=== PATIENT | male | born 1955 | race Caucasian/White ===

== ENCOUNTER 2016-09-11 12:53 | Emergency (ER) | payer MEDICAID ==
[2016-09-11] MEDS ORDERED: INSULIN REGULAR HUMAN 100 UNIT/1 ML 10 ML MDV IVP STA ×2 (14:11→20:20)
[2016-09-11] MEDS ORDERED: metFORMIN 500 MG TABLET PO STA (14:12)
[2016-09-11] MEDS ORDERED: INSULIN REGULAR HUMAN 100 UNIT/1 ML 10 ML MDV ONE ×3 (14:16→20:26)
[2016-09-11] MEDS ORDERED: metFORMIN 500 MG TABLET ONE (14:16)
[2016-09-11] MEDS ORDERED: HALOPERIDOL 5 MG/ML VIAL IVP ONE (19:12)
[2016-09-11] MEDS ORDERED: HALOPERIDOL 5 MG/ML VIAL ONE (19:18)
[2016-09-11] MEDS ORDERED: NICOTINE 21 MG PATCH TOP STA (19:20)
[2016-09-11] MEDS ORDERED: NICOTINE 21 MG PATCH TOP ONE (19:29)
[2016-09-11] MEDS ORDERED: DEXTROSE 50% ABBOJECT 25 GM/50 ML SYRINGE ONE (20:37)
[2016-09-11] MEDS ORDERED: DEXTROSE 50% ABBOJECT 25 GM/50 ML SYRINGE IVP STA (21:27)
[2016-09-12] MEDS ORDERED: metFORMIN 500 MG TABLET PO STA (01:47)
[2016-09-12] MEDS ORDERED: QUEtiapine 25 MG TABLET PO STA (01:50)
[2016-09-12] MEDS ORDERED: metFORMIN 500 MG TABLET ONE (01:57)
== END 2016-09-12 09:35 ==
DX: F29 Unspecified psychosis not due to a substance or known physiological condition (principal); F31.9 Bipolar disorder, unspecified; E11.9 Type 2 diabetes mellitus without complications; Z79.84 Long term (current) use of oral hypoglycemic drugs; Z91.14 Patient's other noncompliance with medication regimen
CPT/HCPCS: 36415; 80053; 80178; 80306; 80307; 80320; 80329; 83690; 85025; 96374; 96375; 99285; A9270; J1815

== ENCOUNTER 2017-01-08 12:44 | Emergency (ER) | payer MEDICAID ==
--- NOTE | 2017-01-08 13:33 | ED Physician Documentation ---
PD HPI MHE - Stated complaint Stated Complaint: MHE - Chief complaint Chief Complaint: MHE - History obtained from History obtained from: Patient - History of Present Illness Primary symptom: Manic, Anxiety, Off meds (his daughter says the patient told her he was not taking his meds, he is more scattered thinking and seems somewhat manic. Sugars are elevated to 300-400s, so apparently not taking his insulin. Went to next day appt at [facility] today and brought over to ED for evaluation and medical clearance for revoking his LRO and transfer to psych facility.). No: Suicidal ideation, Suicide attempt Timing - onset: How many days ago (days to a week of worsening symptoms.) Contributing factors: Off meds. No: Substance abuse - ETOH, Substance abuse - drugs Similar symptoms before: Diagnosis (bipolar/schizoaffective disorder.) Recently seen: Admitted (few weeks ago to psych facility.) Review of Systems Constitutional: denies: Fever Nose: reports: Rhinorrhea / runny nose. denies: Congestion Throat: denies: Sore throat Respiratory: denies: Cough GI: denies: Abdominal Pain, Nausea, Vomiting, Diarrhea : denies: Dysuria, Frequency Skin: denies: Rash, Lesions Neurologic: reports: Generalized weakness. denies: Focal weakness, Numbness, Near syncope Psychiatric: denies: Delusions Endocrine: denies: Weight loss Immunocompromised: denies: Immunocompromised PD PAST MEDICAL HISTORY - Past Medical History Endocrine/Autoimmune: Type 2 diabetes Psych: Bipolar disorder - Present Medications Home Medications: Ambulatory Orders Medication Instructions Recorded Confirmed [place] Carbonate 60 mg PO BID 05/10/16 09/11/16 Metformin HCl 10 mg PO BID 05/10/16 09/11/16 Quetiapine Fumarate [Seroquel] 200 mg PO DAILY 05/10/16 09/11/16 Ziprasidone HCl [Geodon] 80 mg PO DAILY 05/10/16 09/11/16 Benztropine [Cogentin] 1 mg PO DAILY 09/11/16 09/11/16 glipiZIDE [Glucotrol] 5 mg PO DAILY 09/11/16 09/11/16 - Allergies Allergies/Adverse Reactions: Allergies Allergy/AdvReac Type Severity Reaction Status Date / Time aspirin Allergy Unknown Verified 01/08/17 12:58 - Social History Does the pt smoke?: Yes Smoking Status: Current every day smoker Does the pt drink ETOH?: No Does the pt have substance abuse?: No PD ED PE NORMAL - Vitals Vital signs reviewed: Yes - General General: Alert and oriented X 3, No acute distress, Well developed/nourished - HEENT HEENT: Ears normal, Moist mucous membranes, Pharynx benign - Neck Neck: Supple, no meningeal sign, No adenopathy - Cardiac Cardiac: RRR, No murmur - Respiratory Respiratory: Clear bilaterally - Abdomen Abdomen: Soft, Non tender - Male Male : Deferred - Rectal Rectal: Deferred - Back Back: No CVA TTP - Derm Derm: Normal color, Warm and dry - Neuro Neuro: Alert and oriented X 3, No motor deficit. No: Normal speech (somewhat pressured, but still coherent. He is cooperative/pleasant, but says he wants to just go home. ) Results - Vitals Vitals: Vital Signs - 24 hr 01/08/17 01/08/17 12:55 21:45 Temperature 36.1 C L Heart Rate 70 62 Respiratory 19 15 Rate Blood Pressure 121/71 96/43 L O2 Saturation 98 95 Oxygen O2 Source Room air - Labs Labs: Laboratory Tests 01/08/17 01/08/17 01/08/17 13:01 13:48 13:48 WBC 9.6 RBC 4.72 Hgb 14.9 Hct 43.0 MCV 91.1 MCH 31.6 H MCHC 34.7 RDW 13.2 Plt Count 301 MPV 7.7 Neut # 6.0 Lymph # 2.3 [place] # 1.0 Eos # 0.3 Baso # 0.1 Absolute Nucleated RBC 0.01 Nucleated RBCs 0.1 Sodium 131 L Potassium 4.2 Chloride 99 L Carbon Dioxide 25 Anion Gap 7.0 BUN 15 Creatinine 0.8 Estimated GFR (MDRD) 99 Glucose 344 H POC Whole Bld Glucose 343 H Glycated Hemoglobin Estim Average Glucose Calcium 9.4 Magnesium 2.0 Total Bilirubin 0.8 AST 24 ALT 29 Alkaline Phosphatase 58 Total Protein 6.7 Albumin 3.8 Globulin 2.9 Albumin/Globulin Ratio 1.3 Lipase 43 TSH Urine Color Urine Clarity Urine pH Ur Specific [place] Urine Protein Urine Glucose (UA) Urine Ketones Urine Occult Blood Urine Nitrite Urine Bilirubin Urine Urobilinogen Ur Leukocyte Esterase Ur Microscopic Review Urine Culture Comments Last Dose Date Last Dose Time Salicylates < 6.0 Urine Opiates Screen Ur Oxycodone Screen Urine Methadone Screen Ur Propoxyphene Screen Acetaminophen < 10 L Ur Barbiturates Screen Ur Tricyclics Screen Ur Phencyclidine Scrn Ur Amphetamine Screen U Methamphetamines Scrn U Benzodiazepines Scrn [place] Urine Cocaine Screen U Cannabinoids Screen Ethyl Alcohol < 5.0 01/08/17 01/08/17 01/08/17 13:48 13:48 13:48 WBC RBC Hgb Hct MCV MCH MCHC RDW Plt Count MPV Neut # Lymph # [place] # Eos # Baso # Absolute Nucleated RBC Nucleated RBCs Sodium Potassium Chloride Carbon Dioxide Anion Gap BUN Creatinine Estimated GFR (MDRD) Glucose POC Whole Bld Glucose Glycated Hemoglobin 14.4 H Estim Average Glucose 367 H Calcium Magnesium Total Bilirubin AST ALT Alkaline Phosphatase Total Protein Albumin Globulin Albumin/Globulin Ratio Lipase TSH 2.40 Urine Color Urine Clarity Urine pH Ur Specific [place] Urine Protein Urine Glucose (UA) Urine Ketones Urine Occult Blood Urine Nitrite Urine Bilirubin Urine Urobilinogen Ur Leukocyte Esterase Ur Microscopic Review Urine Culture Comments Last Dose Date UNK Last Dose Time UNK Salicylates Urine Opiates Screen Ur Oxycodone Screen Urine Methadone Screen Ur Propoxyphene Screen Acetaminophen Ur Barbiturates Screen Ur Tricyclics Screen Ur Phencyclidine Scrn Ur Amphetamine Screen U Methamphetamines Scrn U Benzodiazepines Scrn [place] 1.18 Urine Cocaine Screen U Cannabinoids Screen Ethyl Alcohol 01/08/17 01/08/17 01/08/17 14:30 15:46 16:56 WBC RBC Hgb Hct MCV MCH MCHC RDW Plt Count MPV Neut # Lymph # [place] # Eos # Baso # Absolute Nucleated RBC Nucleated RBCs Sodium Potassium Chloride Carbon Dioxide Anion Gap BUN Creatinine Estimated GFR (MDRD) Glucose POC Whole Bld Glucose 414 H 394 H Glycated Hemoglobin Estim Average Glucose Calcium Magnesium Total Bilirubin AST ALT Alkaline Phosphatase Total Protein Albumin Globulin Albumin/Globulin Ratio Lipase TSH Urine Color YELLOW Urine Clarity CLEAR Urine pH 7.5 Ur Specific [place] 1.010 Urine Protein NEGATIVE Urine Glucose (UA) >=1000 H Urine Ketones NEGATIVE Urine Occult Blood NEGATIVE Urine Nitrite NEGATIVE Urine Bilirubin NEGATIVE Urine Urobilinogen 0.2 (NORMAL) Ur Leukocyte Esterase NEGATIVE Ur Microscopic Review NOT INDICATED Urine Culture Comments NOT INDICATED Last Dose Date Last Dose Time Salicylates Urine Opiates Screen NEGATIVE Ur Oxycodone Screen NEGATIVE Urine Methadone Screen NEGATIVE Ur Propoxyphene Screen NEGATIVE Acetaminophen Ur Barbiturates Screen NEGATIVE Ur Tricyclics Screen POSITIVE H Ur Phencyclidine Scrn NEGATIVE Ur Amphetamine Screen NEGATIVE U Methamphetamines Scrn NEGATIVE U Benzodiazepines Scrn NEGATIVE [place] Urine Cocaine Screen NEGATIVE U Cannabinoids Screen NEGATIVE Ethyl Alcohol 01/08/17 01/08/17 01/08/17 18:18 19:40 23:24 WBC RBC Hgb Hct MCV MCH MCHC RDW Plt Count MPV Neut # Lymph # [place] # Eos # Baso # Absolute Nucleated RBC Nucleated RBCs Sodium Potassium Chloride Carbon Dioxide Anion Gap BUN Creatinine Estimated GFR (MDRD) Glucose POC Whole Bld Glucose 304 H 244 H 78 Glycated Hemoglobin Estim Average Glucose Calcium Magnesium Total Bilirubin AST ALT Alkaline Phosphatase Total Protein Albumin Globulin Albumin/Globulin Ratio Lipase TSH Urine Color Urine Clarity Urine pH Ur Specific [place] Urine Protein Urine Glucose (UA) Urine Ketones Urine Occult Blood Urine Nitrite Urine Bilirubin Urine Urobilinogen Ur Leukocyte Esterase Ur Microscopic Review Urine Culture Comments Last Dose Date Last Dose Time Salicylates Urine Opiates Screen Ur Oxycodone Screen Urine Methadone Screen Ur Propoxyphene Screen Acetaminophen Ur Barbiturates Screen Ur Tricyclics Screen Ur Phencyclidine Scrn Ur Amphetamine Screen U Methamphetamines Scrn U Benzodiazepines Scrn [place] Urine Cocaine Screen U Cannabinoids Screen Ethyl Alcohol PD MEDICAL DECISION MAKING - ED course Complexity details: reviewed results (blood sugar is elevated and sounds like patient has not been taking meds/insulin. However his lithium level is good. He is having some tangential and scattered thought process. So would be deemed better in psych facility. He has LRO which depends on him taking meds. So this will be revoked. [facility] came to see patient after labs and time for his sugar to lower with meds. SHYAM says psych facility criteria is for sugar to be below 200. Will give meds to lower his sugar gently. Zeinab from [facility] came to see patient and felt he would be detainable by revoking his LRO but no beds available at any facility. So he will be boarding here overnight. He did get his usually Rx meds here in ED. Did not require additional meds. ), considered differential, d/w patient
[2017-01-08 13:59] LABS: BASOPHILS # (AUTO) 0.1 10^3/uL (0.0-0.1); EOSINOPHILS # (AUTO) 0.3 10^3/uL (0.0-0.7); EOSINOPHILS % (AUTO) 2.8 %; HGB - HEMOGLOBIN 14.9 g/dL (14.0-18.0); LYMPHOCYTES # (AUTO) 2.3 10^3/uL (1.5-3.5); LYMPHOCYTES % (AUTO) 23.9 %; MEAN CORPUSCULAR HEMOGLOBIN 31.6 pg (27.0-31.0); MEAN CORPUSCULAR HGB CONC 34.7 g/dL (32.0-36.0); MEAN CORPUSCULAR VOLUME 91.1 fL (80.0-94.0); MEAN PLATELET VOLUME 7.7 fL (7.4-11.4); MONOCYTES % (AUTO) 10.4 %; NEUTROPHILS % (AUTO) 61.9 %; NUCLEATED RED BLOOD CELLS AUTO 0.1 /100WBC; RED BLOOD COUNT 4.72 10^6/uL (4.70-6.10); RED CELL DISTRIBUTION WIDTH 13.2 % (12.0-15.0); UNCORRECTED WHITE BLOOD COUNT 9.6 x10^3/uL; WHITE BLOOD COUNT 9.6 x10^3/uL (4.8-10.8)
[2017-01-08 14:15] LABS: ACETAMINOPHEN < 10 ug/mL (10-30); ALBUMIN/GLOBULIN RATIO 1.3 (1.0-2.2); BILIRUBIN,TOTAL 0.8 mg/dL (0.2-1.0); BUN - BLOOD UREA NITROGEN 15 mg/dL (6-20); CALCIUM 9.4 mg/dL (8.5-10.3); CARBON DIOXIDE - CO2 25 mmol/L (21-32); CHLORIDE 99 mmol/L (101-111); CREATININE 0.8 mg/dL (0.6-1.2); GFR - MDRD 99 (>89); GLUCOSE 344 mg/dL (70-100); LIPASE 43 U/L (22-51); POTASSIUM 4.2 mmol/L (3.5-5.0); SALICYLATE < 6.0 mg/dL; SODIUM 131 mmol/L (135-145); TOTAL PROTEIN 6.7 g/dL (6.7-8.2)
[2017-01-08 14:41] LABS: BILIRUBIN,URINE NEGATIVE (NEGATIVE); PH,URINE 7.5 PH (5.0-7.5)
[2017-01-08 14:43] LABS: UA CHARGE (STRIP ONLY) YES; UR CULTURE IF IND NOT INDICATED
[2017-01-08 15:11] LABS: HEMOGLOBIN A1C 2.13 g/dL
[2017-01-08] MEDS ORDERED: INSULIN REGULAR HUMAN 100 UNIT/1 ML 10 ML MDV SUBQ STA ×2 (15:54→17:05)
[2017-01-08] MEDS ORDERED: INSULIN REGULAR HUMAN 100 UNIT/1 ML 10 ML MDV ONE ×2 (15:59→17:26)
[2017-01-08] MEDS ORDERED: INSULIN GLARGINE 300 UNIT/3 ML PEN SUBQ STA (17:22)
[2017-01-08] MEDS ORDERED: QUEtiapine 25 MG TABLET PO STA (17:37)
[2017-01-08] MEDS ORDERED: ZIPRASIDONE 20 MG CAPSULE PO STA (17:37)
[2017-01-08] MEDS ORDERED: INSULIN GLARGINE 300 UNIT/3 ML PEN SUBQ SCH (21:00)
--- NOTE | 2017-01-09 07:49 | ED Physician Documentation ---
History of Present Illness - Stated complaint Stated Complaint: MHE - Chief complaint Chief Complaint: MHE PD PAST MEDICAL HISTORY - Past Medical History Endocrine/Autoimmune: Type 2 diabetes Psych: Bipolar disorder - Present Medications Home Medications: Ambulatory Orders Medication Instructions Recorded Confirmed [place] Carbonate 300 mg PO QID 05/10/16 01/09/17 Metformin HCl 1,000 mg PO BID 05/10/16 01/09/17 glipiZIDE [Glucotrol] 5 mg PO DAILY 09/11/16 01/09/17 Benztropine [Cogentin] 1 mg PO BID 01/09/17 01/09/17 Insulin Aspart [Novolog Flexpen] 5 units SQ TID 01/09/17 01/09/17 Quetiapine Fumarate [Seroquel] 300 mg PO DAILY 01/09/17 01/09/17 - Allergies Allergies/Adverse Reactions: Allergies Allergy/AdvReac Type Severity Reaction Status Date / Time aspirin Allergy Unknown Verified 01/08/17 12:58 - Social History Does the pt smoke?: Yes Smoking Status: Current every day smoker Does the pt drink ETOH?: No Does the pt have substance abuse?: No Results - Vitals Vitals: Vital Signs - 24 hr 01/08/17 01/09/17 21:45 08:00 Heart Rate 62 58 L Respiratory 15 12 Rate Blood Pressure 96/43 L 122/66 O2 Saturation 95 96 Oxygen O2 Source Room air - Labs Labs: Laboratory Tests 01/08/17 01/08/17 01/08/17 13:01 13:48 13:48 WBC 9.6 RBC 4.72 Hgb 14.9 Hct 43.0 MCV 91.1 MCH 31.6 H MCHC 34.7 RDW 13.2 Plt Count 301 MPV 7.7 Neut # 6.0 Lymph # 2.3 [place] # 1.0 Eos # 0.3 Baso # 0.1 Absolute Nucleated RBC 0.01 Nucleated RBCs 0.1 Sodium 131 L Potassium 4.2 Chloride 99 L Carbon Dioxide 25 Anion Gap 7.0 BUN 15 Creatinine 0.8 Estimated GFR (MDRD) 99 Glucose 344 H POC Whole Bld Glucose 343 H Glycated Hemoglobin Estim Average Glucose Calcium 9.4 Magnesium 2.0 Total Bilirubin 0.8 AST 24 ALT 29 Alkaline Phosphatase 58 Total Protein 6.7 Albumin 3.8 Globulin 2.9 Albumin/Globulin Ratio 1.3 Lipase 43 TSH Urine Color Urine Clarity Urine pH Ur Specific [place] Urine Protein Urine Glucose (UA) Urine Ketones Urine Occult Blood Urine Nitrite Urine Bilirubin Urine Urobilinogen Ur Leukocyte Esterase Ur Microscopic Review Urine Culture Comments Last Dose Date Last Dose Time Salicylates < 6.0 Urine Opiates Screen Ur Oxycodone Screen Urine Methadone Screen Ur Propoxyphene Screen Acetaminophen < 10 L Ur Barbiturates Screen Ur Tricyclics Screen Ur Phencyclidine Scrn Ur Amphetamine Screen U Methamphetamines Scrn U Benzodiazepines Scrn [place] Urine Cocaine Screen U Cannabinoids Screen Ethyl Alcohol < 5.0 01/08/17 01/08/17 01/08/17 13:48 13:48 13:48 WBC RBC Hgb Hct MCV MCH MCHC RDW Plt Count MPV Neut # Lymph # [place] # Eos # Baso # Absolute Nucleated RBC Nucleated RBCs Sodium Potassium Chloride Carbon Dioxide Anion Gap BUN Creatinine Estimated GFR (MDRD) Glucose POC Whole Bld Glucose Glycated Hemoglobin 14.4 H Estim Average Glucose 367 H Calcium Magnesium Total Bilirubin AST ALT Alkaline Phosphatase Total Protein Albumin Globulin Albumin/Globulin Ratio Lipase TSH 2.40 Urine Color Urine Clarity Urine pH Ur Specific [place] Urine Protein Urine Glucose (UA) Urine Ketones Urine Occult Blood Urine Nitrite Urine Bilirubin Urine Urobilinogen Ur Leukocyte Esterase Ur Microscopic Review Urine Culture Comments Last Dose Date UNK Last Dose Time UNK Salicylates Urine Opiates Screen Ur Oxycodone Screen Urine Methadone Screen Ur Propoxyphene Screen Acetaminophen Ur Barbiturates Screen Ur Tricyclics Screen Ur Phencyclidine Scrn Ur Amphetamine Screen U Methamphetamines Scrn U Benzodiazepines Scrn [place] 1.18 Urine Cocaine Screen U Cannabinoids Screen Ethyl Alcohol 01/08/17 01/08/17 01/08/17 14:30 15:46 16:56 WBC RBC Hgb Hct MCV MCH MCHC RDW Plt Count MPV Neut # Lymph # [place] # Eos # Baso # Absolute Nucleated RBC Nucleated RBCs Sodium Potassium Chloride Carbon Dioxide Anion Gap BUN Creatinine Estimated GFR (MDRD) Glucose POC Whole Bld Glucose 414 H 394 H Glycated Hemoglobin Estim Average Glucose Calcium Magnesium Total Bilirubin AST ALT Alkaline Phosphatase Total Protein Albumin Globulin Albumin/Globulin Ratio Lipase TSH Urine Color YELLOW Urine Clarity CLEAR Urine pH 7.5 Ur Specific [place] 1.010 Urine Protein NEGATIVE Urine Glucose (UA) >=1000 H Urine Ketones NEGATIVE Urine Occult Blood NEGATIVE Urine Nitrite NEGATIVE Urine Bilirubin NEGATIVE Urine Urobilinogen 0.2 (NORMAL) Ur Leukocyte Esterase NEGATIVE Ur Microscopic Review NOT INDICATED Urine Culture Comments NOT INDICATED Last Dose Date Last Dose Time Salicylates Urine Opiates Screen NEGATIVE Ur Oxycodone Screen NEGATIVE Urine Methadone Screen NEGATIVE Ur Propoxyphene Screen NEGATIVE Acetaminophen Ur Barbiturates Screen NEGATIVE Ur Tricyclics Screen POSITIVE H Ur Phencyclidine Scrn NEGATIVE Ur Amphetamine Screen NEGATIVE U Methamphetamines Scrn NEGATIVE U Benzodiazepines Scrn NEGATIVE [place] Urine Cocaine Screen NEGATIVE U Cannabinoids Screen NEGATIVE Ethyl Alcohol 01/08/17 01/08/17 01/08/17 18:18 19:40 23:24 WBC RBC Hgb Hct MCV MCH MCHC RDW Plt Count MPV Neut # Lymph # [place] # Eos # Baso # Absolute Nucleated RBC Nucleated RBCs Sodium Potassium Chloride Carbon Dioxide Anion Gap BUN Creatinine Estimated GFR (MDRD) Glucose POC Whole Bld Glucose 304 H 244 H 78 Glycated Hemoglobin Estim Average Glucose Calcium Magnesium Total Bilirubin AST ALT Alkaline Phosphatase Total Protein Albumin Globulin Albumin/Globulin Ratio Lipase TSH Urine Color Urine Clarity Urine pH Ur Specific [place] Urine Protein Urine Glucose (UA) Urine Ketones Urine Occult Blood Urine Nitrite Urine Bilirubin Urine Urobilinogen Ur Leukocyte Esterase Ur Microscopic Review Urine Culture Comments Last Dose Date Last Dose Time Salicylates Urine Opiates Screen Ur Oxycodone Screen Urine Methadone Screen Ur Propoxyphene Screen Acetaminophen Ur Barbiturates Screen Ur Tricyclics Screen Ur Phencyclidine Scrn Ur Amphetamine Screen U Methamphetamines Scrn U Benzodiazepines Scrn [place] Urine Cocaine Screen U Cannabinoids Screen Ethyl Alcohol 01/09/17 01/09/17 01/09/17 00:34 07:34 11:18 WBC RBC Hgb Hct MCV MCH MCHC RDW Plt Count MPV Neut # Lymph # [place] # Eos # Baso # Absolute Nucleated RBC Nucleated RBCs Sodium Potassium Chloride Carbon Dioxide Anion Gap BUN Creatinine Estimated GFR (MDRD) Glucose POC Whole Bld Glucose 118 H 272 H 359 H Glycated Hemoglobin Estim Average Glucose Calcium Magnesium Total Bilirubin AST ALT Alkaline Phosphatase Total Protein Albumin Globulin Albumin/Globulin Ratio Lipase TSH Urine Color Urine Clarity Urine pH Ur Specific [place] Urine Protein Urine Glucose (UA) Urine Ketones Urine Occult Blood Urine Nitrite Urine Bilirubin Urine Urobilinogen Ur Leukocyte Esterase Ur Microscopic Review Urine Culture Comments Last Dose Date Last Dose Time Salicylates Urine Opiates Screen Ur Oxycodone Screen Urine Methadone Screen Ur Propoxyphene Screen Acetaminophen Ur Barbiturates Screen Ur Tricyclics Screen Ur Phencyclidine Scrn Ur Amphetamine Screen U Methamphetamines Scrn U Benzodiazepines Scrn [place] Urine Cocaine Screen U Cannabinoids Screen Ethyl Alcohol PD MEDICAL DECISION MAKING - ED course ED course: assumed care at 7 AM pt with bipolar, oif his medications, not caring for himself due to non compliance blood sugar was high and that was addressed and pt was medically cleared by Dr King pt was seen by DCR, he has failed his least restrictive option and now needs to be revoked and admitted to inpt psych however DCR was not able to find a mental health bed for this pt so DCR did a "walk away" leaving the pt to be dispositioned by ER staff pt remains in the ER pending SW attempting to find placement today I went to see the pt, he was resting but awoke easily, no acute new complaints, asking when he will be "fixed" RRR CTAB reviewed VS - none done since yesterday at which tome pt was slightly hypotensive, rechecked VS and now BP is fine planned to order pts home daily meds but they have not rex reconciled and meds as entered in Sep cannot be correct because lithium does not come as 60 mg and metformin does not come as 10 mg - nursing to try and secure a correct med list incredibly tedious to get a correct med list on this pt but eventually the pharmacist was able to access the insurance company data and list was updated and believed to be accurate and pt was gievn his suual meds orall DCR did come back, Shahnaz Day, and she has worked very hard to place this pt but unfortunately his LRO was issued in [facility] which for some reason means he cannot be admitted to the facilities that do have open beds because [place] if no bed can be found, DCR and pts counselor from [facility] who came to see pt in the ER thinks he may be stabilized enough for dc with every day home visit by his mental health specialist pt was not able to receive inpt mental health - no beds available per JACQUELINE pike MH specialist from [facility] Paco came and he will take the pt home, make sure he has and takes his meds, make sure he checks his blood sugar and that pt goes to his [facility] appt, he also needs to follow up with his PMD to recheck his DM - he has been running high in the ER and diff to get back under control after not being on his meds for many days down to the 200-330 range now and has received all his daily meds so feel OK to dc with close fup Departure - Departure Disposition: 01 Home, Self Care Clinical Impression: Bipolar disorder Qualifiers: Active/Remission status: currently active Uncontrolled diabetes mellitus Qualifiers: Diabetes mellitus type: type 2 Diabetes mellitus complication status: without complication Diabetes mellitus supervisor intermediates insulin use: unspecified prison insulin use status Qualified Code(s): E11.65 - Type 2 diabetes mellitus with hyperglycemia Instructions: ED Hyperglycemia Diabetic Follow-Up: [facility] [Provider Group] [facility] [Provider Group] Comments: Please take all your medications exactly as prescribed. Measure your blood sugars and keep a log Follow up with [facility] about your mental health and with your PMD about your diabetes within a week Your blood sugar should be between 100 and 200. If your blood sugar is more than 450 call your doctor, if it is more than 500 come to the ER
[2017-01-09] MEDS ORDERED: metFORMIN 500 MG TABLET PO STA (08:17)
[2017-01-09] MEDS ORDERED: INSULIN REGULAR HUMAN 100 UNIT/1 ML 10 ML MDV SUBQ STA ×2 (08:18→11:34)
[2017-01-09] MEDS ORDERED: INSULIN REGULAR HUMAN 100 UNIT/1 ML 10 ML MDV ONE ×2 (08:39→11:43)
[2017-01-09] MEDS ORDERED: metFORMIN 500 MG TABLET ONE (08:39)
[2017-01-09] MEDS ORDERED: LITHIUM 150 MG CAPSULE PO STA (12:21)
[2017-01-09] MEDS ORDERED: QUEtiapine 25 MG TABLET PO STA (12:21)
[2017-01-09] MEDS ORDERED: glipiZIDE 5 MG TABLET PO STA (12:22)
[2017-01-09] MEDS ORDERED: BENZTROPINE 2 MG TABLET PO STA (12:22)
[2017-01-09] MEDS ORDERED: QUEtiapine 100 MG TABLET PO STA (12:29)
[2017-01-09 13:57] VITALS: BP 103/72
[2017-01-10] MEDS ORDERED: glipiZIDE 5 MG TABLET PO SCH (07:30)
== END 2017-01-09 13:58 | disposition home or self-care (01) ==
LOC: ED 12:44
DX: F31.9 Bipolar disorder, unspecified (principal); E11.65 Type 2 diabetes mellitus with hyperglycemia; Z79.84 Long term (current) use of oral hypoglycemic drugs; T43.596A Underdosing of other antipsychotics and neuroleptics, initial encounter; T38.3X6A Underdosing of insulin and oral hypoglycemic [antidiabetic] drugs, initial encounter; T44.3X6A Underdosing of other parasympatholytics [anticholinergics and antimuscarinics] and spasmolytics, initial encounter; Z91.128 Patient's intentional underdosing of medication regimen for other reason
CPT/HCPCS: 36415; 80053; 80178; 80306; 80307; 80320; 80329; 81003; 83036; 83690; 83735; 84443; 85025; 99284; A9270; J1815; 81001; 87086

== ENCOUNTER 2017-01-25 09:22 | Inpatient (IN) | payer MEDICAID ==
[2017-01-25 10:06] LABS: BASOPHILS # (AUTO) 0.1 10^3/uL (0.0-0.1); BASOPHILS % (AUTO) 0.9 %; EOSINOPHILS # (AUTO) 0.3 10^3/uL (0.0-0.7); HCT - HEMATOCRIT 43.1 % (42.0-52.0); HGB - HEMOGLOBIN 14.4 g/dL (14.0-18.0); LYMPHOCYTES # (AUTO) 2.3 10^3/uL (1.5-3.5); LYMPHOCYTES % (AUTO) 22.7 %; MEAN CORPUSCULAR HGB CONC 33.4 g/dL (32.0-36.0); MEAN PLATELET VOLUME 7.2 fL (7.4-11.4); MONOCYTES # (AUTO) 0.9 10^3/uL (0.0-1.0); MONOCYTES % (AUTO) 8.4 %; NEUTROPHILS # (AUTO) 6.7 10^3/uL (1.5-6.6); RED BLOOD COUNT 4.64 10^6/uL (4.70-6.10); RED CELL DISTRIBUTION WIDTH 12.7 % (12.0-15.0); UNCORRECTED WHITE BLOOD COUNT 10.3 x10^3/uL; WHITE BLOOD COUNT 10.3 x10^3/uL (4.8-10.8)
[2017-01-25] MEDS ORDERED: INSULIN REGULAR HUMAN 100 UNIT/1 ML 10 ML MDV SUBQ STA (10:09)
[2017-01-25] MEDS ORDERED: INSULIN REGULAR HUMAN 100 UNIT/1 ML 10 ML MDV ONE ×2 (10:12→11:34)
--- NOTE | 2017-01-25 10:15 | ED Physician Documentation ---
History of Present Illness - Stated complaint Stated Complaint: MHE - Chief complaint Chief Complaint: MHE - Additonal information Additional information: hx from pt and from EMR 61 male with bipolar dz seen in ER 01/09 for being non compliant with his meds - both psych and diabetes meds has a LRO was medically cleared felt gravely disabled was seen by DCR - could not find inpt bed so "walked away" then seen by SW who tried for many many hr to find pt inpt mental health - but since his LRO was done in [facility] he had to go to [facility] and there were no beds in that [facility] so even though there were beds elsewhere he could not receive inpt mental health care so the plan was for pt to be dced in the care of his [facility] case manager specialist who was going to visit the pt every day and be sure he took his medications per pt and family this did not happen (this hx may not be accurate though, [facility] closed today cannot check) pt brought in again today by his brother for again being non compliant with meds , high blood sugar, visual hallucinations, not caring for himself pt does not recall the last time he took his meds pt denies fever cough NVD denies PERALTA CP AP complains of a sore throat pt denies hallucination though brother reports ros psychosis, deneis SI HI Review of Systems Constitutional: denies: Fever, Chills Throat: reports: Sore throat Cardiac: denies: Chest pain / pressure Respiratory: denies: Dyspnea, Cough GI: denies: Abdominal Pain, Nausea, Vomiting Psychiatric: reports: Hallucinations. denies: Suicidal, Homicidal Endocrine: denies: Easy bruising / bleeding Immunocompromised: denies: Immunocompromised PD PAST MEDICAL HISTORY - Past Medical History Endocrine/Autoimmune: Type 2 diabetes Psych: Bipolar disorder - Present Medications Home Medications: Ambulatory Orders Medication Instructions Recorded Confirmed Chance Carbonate 300 mg PO QID 05/10/16 01/25/17 Metformin HCl 1,000 mg PO BID 05/10/16 01/25/17 glipiZIDE [Glucotrol] 5 mg PO DAILYWM 09/11/16 01/25/17 Benztropine [Cogentin] 1 mg PO BID 01/09/17 01/25/17 Insulin Aspart [Novolog Flexpen] 5 units SQ TIDWM 01/09/17 01/25/17 Quetiapine Fumarate [Seroquel] 600 mg PO QPM 01/09/17 01/25/17 - Allergies Allergies/Adverse Reactions: Allergies Allergy/AdvReac Type Severity Reaction Status Date / Time aspirin Allergy Unknown Verified 01/08/17 12:58 - Social History Does the pt smoke?: Yes Smoking Status: Current every day smoker Does the pt drink ETOH?: No Does the pt have substance abuse?: No PD ED PE NORMAL - Vitals Vital signs reviewed: Yes - General General: Alert and oriented X 3 (alert, seems a little confused) - HEENT HEENT: Atraumatic - Neck Neck: Supple, no meningeal sign - Cardiac Cardiac: RRR - Respiratory Respiratory: No respiratory distress, Clear bilaterally - Abdomen Abdomen: Soft, Non tender - Derm Derm: Normal color - Neuro Neuro: No motor deficit, Other (cooperative, cannot recall his meds or when he has been taking them, has been having visual hallucinations) Results - Vitals Vitals: Vital Signs - 24 hr 01/25/17 01/25/17 09:29 11:31 Temperature 36.0 C L Heart Rate 77 70 Respiratory 16 16 Rate Blood Pressure 140/84 H 131/81 H O2 Saturation 100 96 Oxygen O2 Source Room air - EKG (time done) 1139 Rate: Rate (enter#) (65) Rhythm: NSR Intervals: Normal MN QRS: Poor R wave progression Ischemia: Q waves (inferior small) - Labs Labs: Laboratory Tests 01/25/17 01/25/17 01/25/17 09:37 10:00 10:00 WBC 10.3 RBC 4.64 L Hgb 14.4 Hct 43.1 MCV 93.0 MCH 31.0 MCHC 33.4 RDW 12.7 Plt Count 310 MPV 7.2 L Neut # 6.7 H Lymph # 2.3 Kidder # 0.9 Eos # 0.3 Baso # 0.1 Absolute Nucleated RBC 0.00 Nucleated RBCs 0.0 Sodium 130 L Potassium 5.3 H Chloride 96 L Carbon Dioxide 27 Anion Gap 7.0 BUN 16 Creatinine 1.0 Estimated GFR (MDRD) 76 L Glucose 485 H POC Whole Bld Glucose 380 H Glycated Hemoglobin Estim Average Glucose Calcium 9.7 Total Bilirubin 0.6 AST 19 ALT 31 Alkaline Phosphatase 88 Total Protein 6.7 Albumin 3.6 Globulin 3.1 Albumin/Globulin Ratio 1.2 Lipase 37 TSH Urine Color Urine Clarity Urine pH Ur Specific Pegram Urine Protein Urine Glucose (UA) Urine Ketones Urine Occult Blood Urine Nitrite Urine Bilirubin Urine Urobilinogen Ur Leukocyte Esterase Ur Microscopic Review Urine Culture Comments Last Dose Date Last Dose Time Salicylates < 6.0 Urine Opiates Screen Ur Oxycodone Screen Urine Methadone Screen Ur Propoxyphene Screen Acetaminophen < 10 L Ur Barbiturates Screen Ur Tricyclics Screen Ur Phencyclidine Scrn Ur Amphetamine Screen U Methamphetamines Scrn U Benzodiazepines Scrn Chance Urine Cocaine Screen U Cannabinoids Screen Ethyl Alcohol < 5.0 Group A Strep Rapid 01/25/17 01/25/17 01/25/17 10:00 10:00 10:05 WBC RBC Hgb Hct MCV MCH MCHC RDW Plt Count MPV Neut # Lymph # Kidder # Eos # Baso # Absolute Nucleated RBC Nucleated RBCs Sodium Potassium Chloride Carbon Dioxide Anion Gap BUN Creatinine Estimated GFR (MDRD) Glucose POC Whole Bld Glucose Glycated Hemoglobin 13.4 H Estim Average Glucose 338 H Calcium Total Bilirubin AST ALT Alkaline Phosphatase Total Protein Albumin Globulin Albumin/Globulin Ratio Lipase TSH 4.60 Urine Color Urine Clarity Urine pH Ur Specific Pegram Urine Protein Urine Glucose (UA) Urine Ketones Urine Occult Blood Urine Nitrite Urine Bilirubin Urine Urobilinogen Ur Leukocyte Esterase Ur Microscopic Review Urine Culture Comments Last Dose Date UNK Last Dose Time UNK Salicylates Urine Opiates Screen Ur Oxycodone Screen Urine Methadone Screen Ur Propoxyphene Screen Acetaminophen Ur Barbiturates Screen Ur Tricyclics Screen Ur Phencyclidine Scrn Ur Amphetamine Screen U Methamphetamines Scrn U Benzodiazepines Scrn Chance 1.77 H* Urine Cocaine Screen U Cannabinoids Screen Ethyl Alcohol Group A Strep Rapid 01/25/17 01/25/17 01/25/17 10:15 10:56 11:30 WBC RBC Hgb Hct MCV MCH MCHC RDW Plt Count MPV Neut # Lymph # Kidder # Eos # Baso # Absolute Nucleated RBC Nucleated RBCs Sodium Potassium Chloride Carbon Dioxide Anion Gap BUN Creatinine Estimated GFR (MDRD) Glucose POC Whole Bld Glucose 424 H Glycated Hemoglobin Estim Average Glucose Calcium Total Bilirubin AST ALT Alkaline Phosphatase Total Protein Albumin Globulin Albumin/Globulin Ratio Lipase TSH Urine Color YELLOW Urine Clarity CLEAR Urine pH 6.5 Ur Specific Pegram 1.010 Urine Protein NEGATIVE Urine Glucose (UA) >=1000 H Urine Ketones NEGATIVE Urine Occult Blood NEGATIVE Urine Nitrite NEGATIVE Urine Bilirubin NEGATIVE Urine Urobilinogen 0.2 (NORMAL) Ur Leukocyte Esterase NEGATIVE Ur Microscopic Review NOT INDICATED Urine Culture Comments NOT INDICATED Last Dose Date Last Dose Time Salicylates Urine Opiates Screen NEGATIVE Ur Oxycodone Screen NEGATIVE Urine Methadone Screen NEGATIVE Ur Propoxyphene Screen NEGATIVE Acetaminophen Ur Barbiturates Screen NEGATIVE Ur Tricyclics Screen POSITIVE H Ur Phencyclidine Scrn NEGATIVE Ur Amphetamine Screen NEGATIVE U Methamphetamines Scrn NEGATIVE U Benzodiazepines Scrn NEGATIVE Chance Urine Cocaine Screen NEGATIVE U Cannabinoids Screen NEGATIVE Ethyl Alcohol Group A Strep Rapid Negative PD MEDICAL DECISION MAKING - ED course ED course: pt with uncontolled diabetes again due to being gravely disabled 2/2 mental health issues - gave insulin and IVF - not acidotic no ketones in urine so not DKA IVF and insulin will also address potassium and his lithium level is toxic though he does not have clinical sx c/w lithium toxicity such as NVD tremors an seizures but cannot be medically clear for inpt mental health will need to be admitted to a tele bed until lithium level drops and blood sugars are controlled will d/w hospitalist Departure - Departure Disposition: [facility] DC/Xfer Clinical Impression: Gravely disabled, Hyperglycemia, Chance toxicity Condition: Fair Discharge Date/Time: 01/25/17 12:25
[2017-01-25 10:21] LABS: ALBUMIN/GLOBULIN RATIO 1.2 (1.0-2.2); BILIRUBIN,TOTAL 0.6 mg/dL (0.2-1.0); BUN - BLOOD UREA NITROGEN 16 mg/dL (6-20); CALCIUM 9.7 mg/dL (8.5-10.3); CARBON DIOXIDE - CO2 27 mmol/L (21-32); CHLORIDE 96 mmol/L (101-111); GFR - MDRD 76 (>89); GLUCOSE 485 mg/dL (70-100); LIPASE 37 U/L (22-51); POTASSIUM 5.3 mmol/L (3.5-5.0); SALICYLATE < 6.0 mg/dL; SODIUM 130 mmol/L (135-145); TOTAL PROTEIN 6.7 g/dL (6.7-8.2)
[2017-01-25 10:26] LABS: ACETAMINOPHEN < 10 ug/mL (10-30)
[2017-01-25 10:30] LABS: RAPID STREP SCREEN REAGENT QC YELLOW (YELLOW)
[2017-01-25 11:07] LABS: BILIRUBIN,URINE NEGATIVE (NEGATIVE); PH,URINE 6.5 PH (5.0-7.5); UA CHARGE (STRIP ONLY) YES; UR CULTURE IF IND NOT INDICATED
[2017-01-25] MEDS ORDERED: INSULIN REGULAR HUMAN 100 UNIT/1 ML 10 ML MDV IVP STA (11:32)
[2017-01-25] MEDS ORDERED: SODIUM CHLORIDE 0.9% 1,000 ML IV ONE (11:32)
[2017-01-25] MEDS ORDERED: SODIUM CHLORIDE FLUSH 0.9% 10 ML SYRINGE IVP PRN (11:49)
[2017-01-25] MEDS: SODIUM CHLORIDE 0.9% 1,000 ML IV SCH ×2 (12:49→19:27)
[2017-01-25 13:02] LABS: HEMOGLOBIN A1C 1.89 g/dL
[2017-01-25] MEDS: ENOXAPARIN 40 MG/0.4 ML SYRINGE SUBQ SCH (13:13)
[2017-01-25] MEDS: INSULIN ASPART 300 UNIT/3 ML PEN SUBQ SCH ×2 (17:24→20:46)
[2017-01-25] MEDS: SODIUM CHLORIDE FLUSH 0.9% 10 ML SYRINGE IVP SCH (20:47)
[2017-01-25] MEDS ORDERED: QUEtiapine 100 MG TABLET PO SCH (21:00)
[2017-01-25] MEDS ORDERED: INSULIN GLARGINE 300 UNIT/3 ML PEN SUBQ SCH ×2 (21:00)
--- NOTE | 2017-01-25 21:54 | HISTORY & PHYSICAL EXAMINATION ---
DATE OF ADMISSION: 01/25/2017 CHIEF COMPLAINT: When the patient is asked why he is in the hospital, he says in a questioning way, "I am here to get lab work done." His brother says that he has not been taking care of himself at home and, "when he goes off his meds, this is what happens." HISTORY OF PRESENT ILLNESS: The patient is a 61-year-old male who has been bipolar since approximately age 20. He lives in a trailer home, which he calls, "the tin can," and is unable to work. He is diabetic and, according to his brother today he is continuing to not take his medications as prescribed hallucinations and also with new tremulousness of the R hand (increased from his chronic Left hand tremor) according to the brother. The patient was in the emergency room on 01/09/2017, evidently for what sounds like a possible manic phase of his bipolar with visual hallucinations. He was evaluated by [facility] and they were apparently looking for an inpatient bed. Although beds were available , for some reason he could only go to [facility]. He says he does have [employer] insurance and perhaps that is why. There were, however, no bed there and ultimately he was discharged home with [facility] coming in to check on him daily and evidently that has not been sufficient. Per his brother Bar, he was getting a weeks worth of meds in a blister pack from [facility]. Today, the brother went to see him. He notes that he is probably, "a day ahead," as the medication should have lasted until tomorrow and they are all done. The insulin is in the freezer and he cant find either the lantus pen nor the insulin syringes (supposed to take prandial insulin and lantus at . The brother-in- law Bar brought him to the emergency room and he was found to be significantly hyperglycemic with a glucose of 485 and also had a slightly supratherapeutic lithium level of 1.77 with the upper end of normal being 1.2 and "potentially toxic" over 1.5. Regarding potential lithium toxicity, he denies that he has had nausea, vomiting or diarrhea. No evident dysrhythmia noted in the ED, although there was no EKG. He had a regular rate. He denies sluggishness or impaired gait, although he says that he did fall yesterday in the street. He describes this as a trip. The brother denies that he has had any agitated type features in the last few days when he has seen him. He does note, however, the patient and the brother, that he has a mild tremor which started on the left hand and the brother notes that it is now also in the right hand. The patient himself notes that he does on occasion have small myoclonic jerks. The patient notes that he "has no money for food" and he basically is eating cereal, occasional eggs. He does not check his blood sugar at home and denies that he has ever checked his blood sugar. He denies any fever or chills at home. PAST MEDICAL HISTORY: Includes bipolar disorder since approximately age 20 and diabetes mellitus type 2. There is an A1c from 01/08 of 14.4. He denies any history of hypertension, coronary disease, dysrhythmia, cancer, or BPH. ALLERGIES: HE IS ALLERGIC TO ASPIRIN, HE SAYS HE GETS NOSEBLEEDS WITH THAT. SOCIAL HISTORY: He does smoke. He cannot tell me how often or how much because he rolls his own and he cannot define how many bags of tobacco he goes through in a week. He denies drinking currently, and his brother says he has not noticed any alcohol. The patient says he used to drink vodka, but cannot describe how much and also denies illicits. FAMILY HISTORY: His mother of lymphoma. Father of coronary disease. He has a sister who is the of Bar, the [id number], who is here. He has one brother, younger, who has had 2 MIs. 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 MEDICATIONS: The brother does not have the pills here, which are coming in a blister pack. 1. The patient says he is on glipizide. He does not remember the dose. 2. Seroquel 300 mg once daily. 3. Metformin 1000 mg twice daily. The patient is quite confident that is what the dose is. 4. Birdsong 300 mg once daily. The patient says he has been on that for a year, the brother cannot corroborate that. He is on long-acting insulin at night. I do not know the dose. Apparently, this is in a pen form and he is also supposed to be taking meal based lispro or Humalog. 5. At some point, he was also on Cogentin. REVIEW OF SYSTEMS: CONSTITUTIONAL: He reports that he has had a weight drop of approximately 13 pounds in 6 months. He used to weigh 225 and now he weighs 212 and he says, again, this is because he cannot afford to eat. Denies any fever or night sweats. HEAD, EARS, EYES, NOSE AND THROAT: Denies any vision changes or blurry vision. No trouble chewing or swallowing. No neck stiffness. CARDIOVASCULAR: He denies chest pain or pressure. Denies any sensation of heart racing or heart fluttering and no lower extremity edema. RESPIRATORY: He denies any shortness of breath, wheezing, or cough. GASTROINTESTINAL: He denies any nausea, vomiting, or diarrhea and is very happy to be eating his second sandwich since he arrived to the emergency room. GENITOURINARY: He denies any dysuria, frequency, or hesitancy. MUSCULOSKELETAL: Regarding falls, he fell yesterday in the street and he describes this as a trip and fall. He does have mild neuropathy of his feet, which is numbness. He denies any pain and denies that he had any near syncope or prodrome prior to this fall yesterday. There is no associated injury. SKIN: No new lesions. NEUROLOGIC: As per the HPI. Brother denies that he has noted any sort of pill rolling or any unusual tongue motions. PSYCHIATRIC: As per the HPI. The patient denies that he has any difficulty sleeping. ENDOCRINE: As per the HPI. He denies that he checks his fingersticks at home and , as noted, his A1c in late December was clearly out of control with it being 14.4. He denies any excessive polyuria, also not since being on the lithium. HEME/LYMPH: Denies any easy bruising or bleeding. PHYSICAL EXAMINATION GENERAL: The patient was initially seen in the emergency room on a stretcher just before transfer to the floor. He was pleasant and oriented to place and time, although he could not name the hospital simply because of the name change to [facility]. He knew the year and date and month. He is a somewhat disheveled appearing gentleman with somewhat sunken features in his face. He sits quietly. He is very cooperative and pleasant and other than telling me he has 362 children, he seems to be for the most part reliable in the history questions he has given me other than telling me he is not missing his medications. VITAL SIGNS: On arrival to the floor, he was afebrile at 36.6, blood pressure 132/83, room air oxygenation 100%, 78 heart rate. HEAD, EARS, EYES, NOSE AND THROAT: He is somewhat disheveled hair that is shorter than shoulder length. Eyes: Extraocular movements are intact. His pupils are equal. There is no nystagmus. There are anicteric sclerae. Oral mucosa: His tongue is somewhat dry. There are no unusual tongue movements. His lips are dry. He has adequate dentition, upper and lower. NECK: Supple. There is no appreciable lymphadenopathy. Carotids are +2 with no appreciable bruit. CHEST: Respirations are unlabored on room air. His chest is clear to auscultation. MUSCULOSKELETAL: There is no spinal tenderness and no CVA tenderness. HEART: Regular S1, S2. Telemetry is currently being hooked up. His periphery is warm. There are no appreciable varicosities. His pulses are +1, that includes dorsalis pedis and posterior tibial and radial. ABDOMEN: Soft, rounded, nondistended, with positive bowel sounds. He is palpated sitting up, but I did not appreciate organomegaly. He has a very, very slight either extruding umbilicus or a very small umbilical hernia. GENITALIA: Not examined. EXTREMITIES: Grossly uniform strength is 5/5. NEUROLOGIC: He is alert and oriented and actually appropriate and quite pleasant and cooperative. He is not currently exhibiting any symptoms of no or depression. He has a very slight tremor of both hands, left slightly greater than right. His reflexes were tested sitting up, and I think he was resisting the movement. There was 1+ brachial and patellar reflex. There was certainly no hyperreflexia. LABORATORY STUDIES: White count 10.3, hemoglobin 14.4, hematocrit 43.1, platelets 310,000. INR 0.9. Sodium 130, potassium 5.3, chloride 96, bicarbonate 27, BUN 16, creatinine 1.0. Glucose 485 after 6 units subcutaneous and 8 units IV in the emergency room. Glucose 2-1/2 hours later, it was 395. TSH is 4.6. AST and ALT are 19 and 31, respectively. Albumin is 3.6. Total protein 6.7, calcium 9.7. Urine specific gravity is 1.010 with greater than 1000 glucose, otherwise unremarkable. Tox screen is noticeable for a lithium level of 1.77 as noted and positive tricyclics. ASSESSMENT AND PLAN: 1. Uncontrolled hyperglycemia. This is likely related to not taking his medications as prescribed. At home, he is supposed to be on metformin, glipizide and what sounds like nighttime Lantus and prandial insulin. He has already received 8 units of IV insulin and 6 units of subcutaneous insulin. Will start IV fluid at 150 mL an hour. He will have moderate dose sliding scale on the initial orders. I certainly will increase this to a high dose given that he is insulin resistant and start Lantus 10 units at bedtime and will modify from there based on what his sugars are today. Since he does not appear to be able to take care of himself safely, once his lithium level is down, we will have [facility] reevaluate him, whether he can be in an inpatient psych bed where he can get better care of his medical problems. 2. Birdsong toxicity. His mild tremor may be an early symptom of that. He does not seem to have any ataxia or sluggishness or confusion. I still want an EKG, but his initial heart rate does not suggest that he has any arrhythmia or bradycardia. We will check for long QT, which is evidently relatively infrequent with lithium toxicity. Also, his urinalysis was already sent, has a normal specific gravity and it does not sound as though he has symptoms suggestive of early DI, even though his sugar is high, he does not appear to be overly volume deplete. 3. Hyponatremia. Taking into account that his glucose is 485, that sodium actually corrects to closer to around 136. 4. Hyperkalemia. I suspect this is due to his volume depletion. He is not taking any exogenous potassium or SALINAS inhibitor, although one would suspect he might be an SALINAS inhibitor given his diabetes. That should correct with his IV fluid repletion. 5. Bipolar disorder. Currently, he is not acting either manic or depressive, although he clearly is not taking care of himself well. I will continue his nighttime Seroquel. His brother did not have his medications with him. I may try to reach [facility] to find out exactly what his medication doses are. 6. Tobacco use. I will check with him if he wants to have a patch. 7. CODE STATUS: FULL. 8. Deep venous thromboembolism prophylaxis. He will be on Lovenox subcutaneously. 9. Disposition: As noted above, once his lithium toxicity has resolved and we have his glucoses under control, hopefully he can be reevaluated by [facility] for inpatient placement. JOB #: [id number] EXT JOB #:[id number] DIYA
[2017-01-25] MEDS: QUEtiapine 100 MG TABLET PO SCH (22:06)
[2017-01-26] MEDS: SODIUM CHLORIDE 0.9% 1,000 ML IV SCH ×4 (02:02→21:19)
[2017-01-26] MEDS: SODIUM CHLORIDE FLUSH 0.9% 10 ML SYRINGE IVP SCH ×3 (05:25→21:18)
[2017-01-26 06:56] LABS: HCT - HEMATOCRIT 42.1 % (42.0-52.0); HGB - HEMOGLOBIN 13.7 g/dL (14.0-18.0); MEAN CORPUSCULAR HEMOGLOBIN 30.4 pg (27.0-31.0); MEAN CORPUSCULAR HGB CONC 32.6 g/dL (32.0-36.0); MEAN CORPUSCULAR VOLUME 93.3 fL (80.0-94.0); MEAN PLATELET VOLUME 7.2 fL (7.4-11.4); RED BLOOD COUNT 4.52 10^6/uL (4.70-6.10); RED CELL DISTRIBUTION WIDTH 12.8 % (12.0-15.0)
[2017-01-26 07:00] LABS: CALCIUM 8.9 mg/dL (8.5-10.3); CREATININE 0.7 mg/dL (0.6-1.2); POTASSIUM 4.5 mmol/L (3.5-5.0)
[2017-01-26] MEDS: INSULIN ASPART 300 UNIT/3 ML PEN SUBQ SCH ×4 (07:42→21:16)
[2017-01-26] MEDS: POLYETHYLENE GLYCOL 3350 17 GM PACKET PO SCH (08:26)
[2017-01-26] MEDS: ENOXAPARIN 40 MG/0.4 ML SYRINGE SUBQ SCH (08:27)
--- NOTE | 2017-01-26 09:02 | PROVIDER PROGRESS NOTE ---
Subjective - Prog Note Date Prog Note Date: 01/26/17 Prog Note Time: 09:00 - Subjective Pt reports feeling: Improved (very happy to be getting food here no complaints, no sob, no chest pain still cant say what home insulin dose is "not on any" ( supposed to be on pm lantus and prandial novolog) Current Medications - Current Medications Current Medications: Active Medications Generic Name Dose Route Start Last Admin Trade Name Freq PRN Reason Stop Dose Admin Enoxaparin Sodium 40 mg 01/25/17 13:30 01/26/17 08:27 Lovenox SUBQ 40 mg DAILY LINDSEY Administration Sodium Chloride 1,000 mls @ 150 mls/hr 01/25/17 13:30 01/26/17 08:27 Normal Saline 0.9% IV 150 mls/hr .Q6H40M LINDSEY Administration Insulin Aspart 3 - 11 unit 01/25/17 17:00 01/26/17 07:42 Novolog SUBQ 3 unit 0800,1200,1700,2100 LINDSEY Administration Protocol Insulin Glargine 25 unit 01/25/17 21:00 01/25/17 20:47 Lantus Solostar SUBQ 25 unit QPM LINDSEY Administration Polyethylene Glycol 17 gm 01/26/17 09:00 01/26/17 08:26 Miralax PO 17 gm DAILY LINDSEY Administration Quetiapine Fumarate 300 mg 01/25/17 21:00 01/25/17 22:06 Seroquel PO 300 mg QPM LINDSEY Administration Sodium Chloride 10 ml 01/25/17 11:49 Normal Saline Flush 0.9% IVP PRN PRN NEEDED PER PROVIDER ORDERS Sodium Chloride 10 ml 01/25/17 22:00 01/26/17 05:25 Normal Saline Flush 0.9% IVP Not Given Q8HR LINDSEY [place] Carbonate 300 mg PO QID 05/10/16 Metformin HCl 1,000 mg PO BID 05/10/16 glipiZIDE [Glucotrol] 5 mg PO DAILYWM 09/11/16 Benztropine [Cogentin] 1 mg PO BID 01/09/17 Insulin Aspart [Novolog Flexpen] 5 units SQ TIDWM 01/09/17 Quetiapine Fumarate [Seroquel] 600 mg PO QPM 01/09/17 Objective - Vital Signs/Intake & Output Reviewed Vital Signs: Yes Vital Signs: Vital Signs x48h Temp Pulse Resp BP Pulse Ox 01/26/17 04:16 36.6 C 57 L 18 107/69 94 Intake & Output: Intake & Output 01/23/17 01/24/17 01/25/17 01/26/17 23:59 23:59 23:59 23:59 Intake Total 1831 1393 Balance 1831 1393 - Objective General Appearance: positive: No acute distress, Other (awake, alert, pleasant , cooperative) Respiratory: positive: No respiratory distress, Breath sounds nml Cardiovascular: positive: Regular rate & rhythm, No murmur Abdomen: positive: Nml bowel sounds, No distention. negative: Tenderness Skin: positive: Warm, Dry Extremities: positive: No pedal edema Neurologic/Psychiatric: positive: Oriented x3, Mood/affect nml, Other (very slight left hand tremor) - Lab Results Fish Bones: 01/26/17 06:04 01/26/17 06:04 Other Labs: Lab Results x24hrs 01/26/17 01/26/17 01/26/17 Range/Units 07:20 06:20 06:04 WBC (4.8-10.8) x10^3/uL RBC (4.70-6.10) 10^6/uL Hgb (14.0-18.0) g/dL Hct (42.0-52.0) % MCV (80.0-94.0) fL MCH (27.0-31.0) pg MCHC (32.0-36.0) g/dL RDW (12.0-15.0) % Plt Count (130-450) 10^3/uL MPV (7.4-11.4) fL Sodium 137 (135-145) mmol/L Potassium 4.5 (3.5-5.0) mmol/L Chloride 107 (101-111) mmol/L Carbon Dioxide 25 (21-32) mmol/L Anion Gap 5.0 L (6-13) BUN 14 (6-20) mg/dL Creatinine 0.7 (0.6-1.2) mg/dL Estimated GFR (MDRD) 115 (>89) Glucose 153 H (70-100) mg/dL POC Whole Bld Glucose 161 H (70 - 100) mg/dL Calcium 8.9 (8.5-10.3) mg/dL Last Dose Date UNK Last Dose Time UNK [place] 1.00 mmol/L 01/26/17 01/25/17 01/25/17 Range/Units 06:04 20:29 12:22 WBC 12.0 H (4.8-10.8) x10^3/uL RBC 4.52 L (4.70-6.10) 10^6/uL Hgb 13.7 L (14.0-18.0) g/dL Hct 42.1 (42.0-52.0) % MCV 93.3 (80.0-94.0) fL MCH 30.4 (27.0-31.0) pg MCHC 32.6 (32.0-36.0) g/dL RDW 12.8 (12.0-15.0) % Plt Count 300 (130-450) 10^3/uL MPV 7.2 L (7.4-11.4) fL Sodium (135-145) mmol/L Potassium (3.5-5.0) mmol/L Chloride (101-111) mmol/L Carbon Dioxide (21-32) mmol/L Anion Gap (6-13) BUN (6-20) mg/dL Creatinine (0.6-1.2) mg/dL Estimated GFR (MDRD) (>89) Glucose (70-100) mg/dL POC Whole Bld Glucose 291 H 395 H (70 - 100) mg/dL Calcium (8.5-10.3) mg/dL Last Dose Date Last Dose Time [place] mmol/L WBC was 10.3 on admit 01/25 , hyperkalemia resolved (5.3 yesterday; 4.5 today [facility] POC 424 11:30 am 395 12:22 8:30 p 291 7:20 am 161 toxicology; lithium level 1.0 Assessment/Plan - Problem List (1) Hyperglycemia Impression: Uncontrolled Diabetes mellitus w/ A1C 13.4 due primarily due to poor compliance w/ mental health issues he is not following medical treatment plan at home "I'm not on insulin" He cannot tell me what lantus dose, nor prandial dose he should take, nor could his brother Glucose much better w/ IVF, resumption of insulin got 15 u. lantus last pm and high dose correctional May follow [facility] POC's and reduce insulin if glucose warrants 153 fasting - addendum for 1:15 pm; glucose well controlled at 4am, BUT 353 this am -will add up SSI today and readjust lantus, and add a prandial dose>>>already additional 23 u. today; will increase pm to 26; 6 u prandial starting at breakfast not on ACEI for renal protection; SBP leaves no room for ACEI -will add statin -will resume metformin in am (as has no other medical issues that would warrant contrast (and lithium toxicity improving) (2) [place] toxicity Impression: mild, w/ mild increase level 1.77; already down to 1.0 today brother looked at blister pack from [facility], and it sounds like he was just 1 day ahead taking his pills Resume lithium tomorrow Qualifiers: Encounter type: initial encounter Injury intent: undetermined intent Qualified Code(s): T56.894A - Toxic effect of other metals, undetermined, initial encounter (3) Bipolar disorder Impression: stable mood currently, no agitation, no no, no overt depression, engageable Per [facility]; med list; Was on Geodon; that was stopped on 12/01/16 (or ; not legible now on Quetiapine 400 mg po qhs (since late november) resume that last pm. as above continue lithium starting tomorrow, (and benztropine 1mg po bid) Qualifiers: Active/Remission status: currently active Current bipolar episode type: mixed Psychotic features: with psychotic features (4) Tobacco abuse Impression: rolls his own at home denies need for nicoderm patch Disposition unable to reliably manage medical care at home SW/CM aware, will explore placement possibilities e.g shelter
[2017-01-26] MEDS ORDERED: INSULIN GLARGINE 300 UNIT/3 ML PEN SUBQ SCH (21:00)
[2017-01-26] MEDS: ATORVASTATIN 40 MG TABLET PO SCH (21:16)
[2017-01-26] MEDS: INSULIN GLARGINE 300 UNIT/3 ML PEN SUBQ SCH (21:17)
[2017-01-26] MEDS: QUEtiapine 100 MG TABLET PO SCH (22:49)
[2017-01-27] MEDS: SODIUM CHLORIDE 0.9% 1,000 ML IV SCH (03:26)
[2017-01-27] MEDS: SODIUM CHLORIDE FLUSH 0.9% 10 ML SYRINGE IVP SCH ×3 (05:30→20:13)
--- NOTE | 2017-01-27 07:14 | PROVIDER PROGRESS NOTE ---
Subjective - Prog Note Date Prog Note Date: 01/27/17 Prog Note Time: 07:11 - Subjective Pt reports feeling: No change ([facility];) Subjective: insists that he is only taking seroquel 300 at hs (the [place] med list says 400 hs as of late november) He has had not issues here with mood, Current Medications - Current Medications Current Medications: Active Medications Generic Name Dose Route Start Last Admin Trade Name Freq PRN Reason Stop Dose Admin Atorvastatin Calcium 20 mg 01/26/17 21:00 01/26/17 21:16 Lipitor PO 20 mg QPM LINDSEY Administration Enoxaparin Sodium 40 mg 01/25/17 13:30 01/26/17 08:27 Lovenox SUBQ 40 mg DAILY LINDSEY Administration Sodium Chloride 1,000 mls @ 150 mls/hr 01/25/17 13:30 01/27/17 03:26 Normal Saline 0.9% IV 150 mls/hr .Q6H40M LINDSEY Administration Insulin Aspart 3 - 11 unit 01/25/17 17:00 01/26/17 21:16 Novolog SUBQ 5 unit 0800,1200,1700,2100 LINDSEY Administration Protocol Insulin Aspart 6 unit 01/27/17 08:00 Novolog SUBQ TIDWM LINDSEY Protocol Insulin Glargine 26 unit 01/26/17 21:00 01/26/17 21:17 Lantus Solostar SUBQ 26 unit QPM LINDSEY Administration Lisinopril 2.5 mg 01/27/17 09:00 Zestril PO DAILY LINDSEY Metformin HCl 1,000 mg 01/27/17 08:00 Glucophage PO BIDWM LINDSEY Polyethylene Glycol 17 gm 01/26/17 09:00 01/26/17 08:26 Miralax PO 17 gm DAILY LINDSEY Administration Quetiapine Fumarate 300 mg 01/25/17 21:00 01/26/17 22:49 Seroquel PO 300 mg QPM LINDSEY Administration Sodium Chloride 10 ml 01/25/17 11:49 Normal Saline Flush 0.9% IVP PRN PRN NEEDED PER PROVIDER ORDERS Sodium Chloride 10 ml 01/25/17 22:00 01/27/17 05:30 Normal Saline Flush 0.9% IVP Not Given Q8HR LINDSEY [place] Carbonate 300 mg PO QID 05/10/16 Metformin HCl 1,000 mg PO BID 05/10/16 glipiZIDE [Glucotrol] 5 mg PO DAILYWM 09/11/16 Benztropine [Cogentin] 1 mg PO BID 01/09/17 Insulin Aspart [Novolog Flexpen] 5 units SQ TIDWM 01/09/17 Quetiapine Fumarate [Seroquel] 600 mg PO QPM 01/09/17 lithium c Objective - Vital Signs/Intake & Output Reviewed Vital Signs: Yes Vital Signs: Vital Signs x48h Temp Pulse Resp BP Pulse Ox 01/27/17 06:20 36.7 C 60 16 120/79 100 01/26/17 23:57 37.2 C 57 L 18 111/71 96 Intake & Output: Intake & Output 01/24/17 01/25/17 01/26/17 01/27/17 23:59 23:59 23:59 23:59 Intake Total 1831 4723 1262 Output Total 300 Balance 1831 4423 1262 - Objective General Appearance: positive: No acute distress, Other (lying in bed cheerful, cooperative, interactive, answers questions appropriately, somewhat disheveled) Eyes Bilateral: positive: Normal inspection Respiratory: positive: No respiratory distress, Breath sounds nml Abdomen: positive: Nml bowel sounds, No distention. negative: Tenderness Skin: positive: Warm, Dry Extremities: positive: No pedal edema Neurologic/Psychiatric: positive: Oriented x3, Mood/affect nml - Lab Results Fish Bones: 01/26/17 06:04 01/26/17 06:04 Other Labs: Lab Results x24hrs 01/26/17 01/26/17 01/26/17 Range/Units 20:59 16:41 11:29 POC Whole Bld Glucose 219 H 324 H 353 H (70 - 100) mg/dL Last Dose Date Last Dose Time [place] mmol/L 01/26/17 01/26/17 Range/Units 07:20 06:20 POC Whole Bld Glucose 161 H (70 - 100) mg/dL Last Dose Date UNK Last Dose Time UNK [place] 1.00 mmol/L Assessment/Plan - Problem List (1) Hyperglycemia Impression: 01/27 gluc 111 at after 26 u pm lantus. 225 pre breakfast Will evaluate after 6 u prandial today Will increase prandial insulin ; and adjust as warranted added acei; but [employer] warning re: possible interaction w/ lthium if reduced clearance . Would likely be ok, as he is hydrated, but since just came in w/ elevated lithium level will d/c and defer to pcp 01/26 Uncontrolled Diabetes mellitus w/ A1C 13.4 due primarily due to poor compliance w/ mental health issues he is not following medical treatment plan at home "I'm not on insulin" He cannot tell me what lantus dose, nor prandial dose he should take, nor could his brother Glucose much better w/ IVF, resumption of insulin got 15 u. lantus last pm and high dose correctional May follow [facility] POC's and reduce insulin if glucose warrants 153 fasting - addendum for 1:15 pm; glucose well controlled at 4am, BUT 353 this am -will add up SSI today and readjust lantus, and add a prandial dose>>>already additional 23 u. today; will increase pm to 26; 6 u prandial starting at breakfast not on ACEI for renal protection; SBP leaves room for ACEI>>reviewed BP's later , will add low dose ACEI 2.5 mg -will add statin -will resume metformin in am (as has no other medical issues that would warrant contrast (and lithium toxicity improving) (2) [place] toxicity Impression: 01/27 resolved, resuming lithium at home dose 600 bid 01/26 mild, w/ mild increase level 1.77; already down to 1.0 today brother looked at blister pack from [facility], and it sounds like he was just 1 day ahead taking his pills Resume lithium tomorrow nitial encounter (3) Bipolar disorder Impression: as above taking quetiapine 300 hs (per him) If any change in mood will return to 400 01/26 stable mood currently, no agitation, no no, no overt depression, engageable Per [facility]; med list; Was on Geodon; that was stopped on 12/01/16 (or ; not legible now on Quetiapine 400 mg po qhs (since late november) resume that last pm. as above continue lithium starting tomorrow, (and benztropine 1mg po bid) (4) Tobacco abuse Impression: rolls his own at home denies need for nicoderm patch Disposition unable to reliably manage medical care at home SW/CM aware, will explore placement possibilities e.g jail (2) [place] toxicity Qualifiers: Encounter type: initial encounter Injury intent: undetermined intent Qualified Code(s): T56.894A - Toxic effect of other metals, undetermined, initial encounter (3) Bipolar disorder Qualifiers: Active/Remission status: currently active Current bipolar episode type: mixed Psychotic features: with psychotic features
[2017-01-27] MEDS ORDERED: INSULIN ASPART 300 UNIT/3 ML PEN SUBQ SCH (08:00)
[2017-01-27] MEDS: INSULIN ASPART 300 UNIT/3 ML PEN SUBQ SCH ×7 (08:00→20:06)
[2017-01-27] MEDS: ENOXAPARIN 40 MG/0.4 ML SYRINGE SUBQ SCH (08:46)
[2017-01-27] MEDS: metFORMIN 500 MG TABLET PO SCH ×2 (08:46→16:50)
[2017-01-27] MEDS: POLYETHYLENE GLYCOL 3350 17 GM PACKET PO SCH (08:46)
[2017-01-27] MEDS ORDERED: LISINOPRIL 5 MG TABLET PO SCH (09:00)
--- NOTE | 2017-01-27 10:46 | Discharge Plan ---
Discharge Plan Condition: Fair No Smoking: If you smoke, Please STOP! Call for help.
[2017-01-27] MEDS: ATORVASTATIN 40 MG TABLET PO SCH (20:05)
[2017-01-27] MEDS: QUEtiapine 100 MG TABLET PO SCH (20:05)
[2017-01-27] MEDS: LITHIUM 150 MG CAPSULE PO SCH (20:05)
[2017-01-27] MEDS: INSULIN GLARGINE 300 UNIT/3 ML PEN SUBQ SCH (20:13)
[2017-01-28] MEDS: SODIUM CHLORIDE FLUSH 0.9% 10 ML SYRINGE IVP SCH ×3 (06:13→20:44)
[2017-01-28] MEDS: INSULIN ASPART 300 UNIT/3 ML PEN SUBQ SCH ×7 (08:21→20:43)
[2017-01-28] MEDS: metFORMIN 500 MG TABLET PO SCH ×2 (08:22→16:47)
[2017-01-28] MEDS: LITHIUM 150 MG CAPSULE PO SCH ×2 (08:22→20:35)
[2017-01-28] MEDS: POLYETHYLENE GLYCOL 3350 17 GM PACKET PO SCH (08:22)
[2017-01-28] MEDS: ENOXAPARIN 40 MG/0.4 ML SYRINGE SUBQ SCH (08:22)
--- NOTE | 2017-01-28 11:11 | Discharge Plan ---
Discharge Plan Disposition: 01 Home, Self Care Condition: Stable Diet: Regular Activity Restrictions: No Restrictions Shower Restrictions: No Driving Restrictions: No Weight Bearing: Full Weight Instruction Topics: Sachse tablets or capsules, [place], Hyperglycemia, Bipolar Disorder, Bipolar Disorder Tx, Diabetes Dx, Hyperglycemia Steps Additional Instructions or Follow Up instructions: See PCP and psychiatrist in two weeks pt [facility] with case sealer-daily visit, clinician for mental health, Prescriber for medical management No Smoking: If you smoke, Please STOP! Call for help. Follow-up with: Matt Loomis MD [Primary Care Provider] -
--- NOTE | 2017-01-28 12:32 | PROVIDER PROGRESS NOTE ---
Subjective - Prog Note Date Prog Note Date: 01/28/17 Prog Note Time: 12:30 - Subjective Pt reports feeling: No change Current Medications - Current Medications Current Medications: additional insulin from 8 unit to 6 unit, pt had once glucose at 65 Objective - Vital Signs/Intake & Output Vital Signs: Vital Signs x48h Temp Pulse Resp BP Pulse Ox 01/28/17 11:47 36.6 C 53 L 19 149/84 H 96 01/28/17 09:00 36.3 C L 54 L 18 113/69 97 01/28/17 05:00 36.7 C 46 L 16 100/55 L 98 Intake & Output: Intake & Output 01/25/17 01/26/17 01/27/17 01/28/17 23:59 23:59 23:59 23:59 Intake Total 1831 4723 2857 360 Output Total 300 Balance 1831 4423 2857 360 - Objective General Appearance: positive: No acute distress, Alert Eyes Bilateral: positive: Normal inspection, PERRL ENT: positive: ENT inspection nml, No signs of dehydration Neck: positive: Nml inspection Respiratory: positive: Chest non-tender, No respiratory distress, Breath sounds nml Cardiovascular: positive: Regular rate & rhythm, No murmur, No gallop Peripheral Pulses: 2+ Radial (R), 2+ Radial (L) Abdomen: positive: Non-tender, Nml bowel sounds, No distention Back: positive: Nml inspection Skin: positive: Color nml, Warm Extremities: positive: Non-tender, Full ROM, Nml appearance Neurologic/Psychiatric: positive: Oriented x3, Motor nml, Sensation nml Reflexes: Knee (R): 2+, Knee (L): 2+ - Lab Results Fish Bones: 01/26/17 06:04 01/26/17 06:04 Other Labs: Lab Results x24hrs 01/28/17 01/28/17 01/27/17 Range/Units 08:25 07:59 16:38 POC Whole Bld Glucose 114 H 65 L 265 H (70 - 100) mg/dL Assessment/Plan - Problem List (1) Hypoglycemia Impression: 01/28 pt had one episode glucose at 65, so insulin at HS and mild increase pt' s dietary calorie discuss with case fitter, try to find bed in nurse facility for pt 1) Hyperglycemia Impression: 01/27 gluc 111 at after 26 u pm lantus. 225 pre breakfast Will evaluate after 6 u prandial today Will increase prandial insulin ; and adjust as warranted added acei; but [employer] warning re: possible interaction w/ lthium if reduced clearance . Would likely be ok, as he is hydrated, but since just came in w/ elevated lithium level will d/c and defer to pcp 01/26 Uncontrolled Diabetes mellitus w/ A1C 13.4 due primarily due to poor compliance w/ mental health issues he is not following medical treatment plan at home "I'm not on insulin" He cannot tell me what lantus dose, nor prandial dose he should take, nor could his brother Glucose much better w/ IVF, resumption of insulin got 15 u. lantus last pm and high dose correctional May follow [facility] POC's and reduce insulin if glucose warrants 153 fasting - addendum for 1:15 pm; glucose well controlled at 4am, BUT 353 this am -will add up SSI today and readjust lantus, and add a prandial dose>>>already additional 23 u. today; will increase pm to 26; 6 u prandial starting at breakfast not on ACEI for renal protection; SBP leaves room for ACEI>>reviewed BP's later , will add low dose ACEI 2.5 mg -will add statin -will resume metformin in am (as has no other medical issues that would warrant contrast (and lithium toxicity improving) (2) [place] toxicity Impression: 01/27 resolved, resuming lithium at home dose 600 bid 01/26 mild, w/ mild increase level 1.77; already down to 1.0 today brother looked at blister pack from [facility], and it sounds like he was just 1 day ahead taking his pills Resume lithium tomorrow nitial encounter (3) Bipolar disorder Impression: as above taking quetiapine 300 hs (per him) If any change in mood will return to 400 01/26 stable mood currently, no agitation, no no, no overt depression, engageable Per [facility]; med list; Was on Geodon; that was stopped on 12/01/16 (or ; not legible now on Quetiapine 400 mg po qhs (since late november) resume that last pm. as above continue lithium starting tomorrow, (and benztropine 1mg po bid) (4) Tobacco abuse Impression: rolls his own at home denies need for nicoderm patch Disposition unable to reliably manage medical care at home SW/CM aware, will explore placement possibilities e.g assisted (2) [place] toxicity Qualifiers: Encounter type: initial encounter Injury intent: undetermined intent Qualified Code(s): T56.894A - Toxic effect of other metals, undetermined, initial encounter (3) Bipolar disorder Qualifiers: Active/Remission status: currently active Current bipolar episode type: mixed Psychotic features: with psychotic features
[2017-01-28] MEDS: ATORVASTATIN 40 MG TABLET PO SCH (20:36)
[2017-01-28] MEDS: QUEtiapine 100 MG TABLET PO SCH (20:36)
[2017-01-28] MEDS: INSULIN GLARGINE 300 UNIT/3 ML PEN SUBQ SCH (20:43)
[2017-01-28] MEDS ORDERED: QUEtiapine 100 MG TABLET PO PRN (23:52)
[2017-01-29] MEDS: SODIUM CHLORIDE FLUSH 0.9% 10 ML SYRINGE IVP SCH ×4 (06:03→21:40)
[2017-01-29] MEDS: POLYETHYLENE GLYCOL 3350 17 GM PACKET PO SCH (08:44)
[2017-01-29] MEDS: metFORMIN 500 MG TABLET PO SCH ×2 (08:45→17:56)
[2017-01-29] MEDS: LITHIUM 150 MG CAPSULE PO SCH ×2 (08:45→21:37)
[2017-01-29] MEDS: INSULIN ASPART 300 UNIT/3 ML PEN SUBQ SCH ×7 (08:45→21:37)
[2017-01-29] MEDS: ENOXAPARIN 40 MG/0.4 ML SYRINGE SUBQ SCH (08:45)
--- NOTE | 2017-01-29 11:47 | PROVIDER PROGRESS NOTE ---
Subjective - Prog Note Date Prog Note Date: 01/29/17 Prog Note Time: 11:45 - Subjective Pt reports feeling: No change Objective - Vital Signs/Intake & Output Vital Signs: Vital Signs x48h Temp Pulse Resp BP Pulse Ox 01/29/17 07:35 37.1 C 52 L 16 158/78 H 97 01/29/17 04:33 36.9 C 53 L 18 126/68 Intake & Output: Intake & Output 01/26/17 01/27/17 01/28/17 01/29/17 23:59 23:59 23:59 23:59 Intake Total 4723 2857 1350 360 Output Total 300 Balance 4423 2857 1350 360 - Objective General Appearance: positive: No acute distress, Alert Eyes Bilateral: positive: Normal inspection, PERRL ENT: positive: ENT inspection nml, No signs of dehydration Neck: positive: Nml inspection, Trachea midline Respiratory: positive: Chest non-tender, No respiratory distress, Breath sounds nml Cardiovascular: positive: Regular rate & rhythm, No murmur Peripheral Pulses: 2+ Radial (R), 2+ Radial (L) Abdomen: positive: Non-tender, Nml bowel sounds, No distention Back: positive: Nml inspection Skin: positive: Color nml, Warm Extremities: positive: Non-tender, Full ROM Neurologic/Psychiatric: positive: Oriented x3, Motor nml, Sensation nml - Lab Results Fish Bones: 01/26/17 06:04 01/26/17 06:04 Other Labs: Lab Results x24hrs 01/29/17 01/29/17 01/28/17 Range/Units 11:27 07:29 16:39 POC Whole Bld Glucose 244 H 96 161 H (70 - 100) mg/dL Assessment/Plan - Problem List (1) Hypoglycemia Impression: pt's glucose at morning is 96, better control still seek replacement
[2017-01-29] MEDS: INSULIN GLARGINE 300 UNIT/3 ML PEN SUBQ SCH (21:37)
[2017-01-29] MEDS: traMADol 50 MG TABLET PO PRN (21:38)
[2017-01-29] MEDS: ATORVASTATIN 40 MG TABLET PO SCH (21:38)
[2017-01-29] MEDS: QUEtiapine 100 MG TABLET PO SCH (23:03)
[2017-01-30] MEDS: SODIUM CHLORIDE FLUSH 0.9% 10 ML SYRINGE IVP SCH ×4 (03:14→23:28)
[2017-01-30] MEDS: traMADol 50 MG TABLET PO PRN (05:51)
[2017-01-30] MEDS: POLYETHYLENE GLYCOL 3350 17 GM PACKET PO SCH (09:23)
[2017-01-30] MEDS: LITHIUM 150 MG CAPSULE PO SCH ×2 (09:23→21:48)
[2017-01-30] MEDS: metFORMIN 500 MG TABLET PO SCH ×2 (09:24→17:21)
[2017-01-30] MEDS: INSULIN ASPART 300 UNIT/3 ML PEN SUBQ SCH ×7 (09:24→21:48)
[2017-01-30] MEDS: ENOXAPARIN 40 MG/0.4 ML SYRINGE SUBQ SCH (09:24)
--- NOTE | 2017-01-30 13:31 | PROVIDER PROGRESS NOTE ---
Subjective - Prog Note Date Prog Note Date: 01/30/17 Prog Note Time: 13:28 - Subjective Pt reports feeling: No change Objective - Vital Signs/Intake & Output Vital Signs: Vital Signs x48h Temp Pulse Resp BP BP Pulse Ox 01/30/17 12:19 36.6 C 60 12 115/64 97 01/30/17 08:32 36.5 C 51 L 12 146/84 H 98 Intake & Output: Intake & Output 01/27/17 01/28/17 01/29/17 01/30/17 23:59 23:59 23:59 23:59 Intake Total 2857 1350 1620 500 Balance 2857 1350 1620 500 - Objective General Appearance: positive: No acute distress, Alert Eyes Bilateral: positive: Normal inspection, PERRL ENT: positive: ENT inspection nml, Pharynx nml, No signs of dehydration Neck: positive: Nml inspection, Trachea midline Respiratory: positive: Chest non-tender, No respiratory distress, Breath sounds nml Cardiovascular: positive: Regular rate & rhythm, No murmur Peripheral Pulses: 2+ Radial (R), 2+ Radial (L), 2+ Dorsalis pedis (R), 2+ Dorsalis pedis (L) Abdomen: positive: Non-tender, Nml bowel sounds, No distention Back: positive: Nml inspection Skin: positive: Color nml, No rash, Warm Extremities: positive: Non-tender, Full ROM, Nml appearance Neurologic/Psychiatric: positive: Oriented x3, Motor nml, Sensation nml, Mood/ affect nml - Lab Results Fish Bones: 01/26/17 06:04 01/26/17 06:04 Other Labs: Lab Results x24hrs 01/30/17 01/30/17 Range/Units 11:45 07:37 POC Whole Bld Glucose 219 H 111 H (70 - 100) mg/dL Assessment/Plan - Problem List (1) Hypoglycemia Impression: Pt's lab and vital reviewed. Pt without complaint. Plan: wait for bed available to D/C Pt
[2017-01-30] MEDS: ATORVASTATIN 40 MG TABLET PO SCH (21:47)
[2017-01-30] MEDS: INSULIN GLARGINE 300 UNIT/3 ML PEN SUBQ SCH (21:49)
[2017-01-30] MEDS: QUEtiapine 100 MG TABLET PO SCH (22:43)
[2017-01-31] MEDS: metFORMIN 500 MG TABLET PO SCH ×2 (08:33→16:58)
[2017-01-31] MEDS: POLYETHYLENE GLYCOL 3350 17 GM PACKET PO SCH (08:33)
[2017-01-31] MEDS: LITHIUM 150 MG CAPSULE PO SCH (08:33)
[2017-01-31] MEDS: ENOXAPARIN 40 MG/0.4 ML SYRINGE SUBQ SCH (08:34)
[2017-01-31] MEDS: INSULIN ASPART 300 UNIT/3 ML PEN SUBQ SCH ×6 (08:34→16:57)
[2017-01-31] MEDS: traMADol 50 MG TABLET PO PRN (08:53)
--- NOTE | 2017-01-31 11:50 | PROVIDER PROGRESS NOTE ---
Subjective - Prog Note Date Prog Note Date: 01/31/17 Prog Note Time: 11:47 - Subjective Pt reports feeling: No change Objective - Vital Signs/Intake & Output Vital Signs: Vital Signs x48h Temp Pulse Resp BP BP Pulse Ox 01/31/17 09:04 36.6 C 55 L 18 148/83 H 98 01/31/17 05:40 36.7 C 53 L 16 126/74 95 Intake & Output: Intake & Output 01/28/17 01/29/17 01/30/17 01/31/17 23:59 23:59 23:59 23:59 Intake Total 1350 1620 1972 400 Balance 1350 1620 1972 400 - Objective General Appearance: positive: No acute distress, Alert Eyes Bilateral: positive: Normal inspection, PERRL ENT: positive: ENT inspection nml, Pharynx nml, No signs of dehydration Neck: positive: Nml inspection, Trachea midline Respiratory: positive: Chest non-tender, No respiratory distress, Breath sounds nml Cardiovascular: positive: Regular rate & rhythm, No murmur Peripheral Pulses: 2+ Radial (R), 2+ Radial (L), 2+ Dorsalis pedis (R), 2+ Dorsalis pedis (L) Abdomen: positive: Non-tender, Nml bowel sounds, No distention Back: positive: Nml inspection Skin: positive: Color nml, Warm Extremities: positive: Non-tender, Full ROM, Nml appearance Neurologic/Psychiatric: positive: Oriented x3, CN's nml (2-12), Motor nml, Sensation nml - Lab Results Fish Bones: 01/26/17 06:04 01/26/17 06:04 Other Labs: Lab Results x24hrs 01/31/17 01/31/17 01/30/17 Range/Units 11:11 07:44 11:45 POC Whole Bld Glucose 198 H 83 219 H (70 - 100) mg/dL Assessment/Plan - Problem List (1) Hypoglycemia Impression: pt's vital and lab reviewed, stable. discuss with case and social work at meeting, hopefully we could find a placement and D/C pt today
[2017-01-31] MEDS: SODIUM CHLORIDE FLUSH 0.9% 10 ML SYRINGE IVP SCH (13:04)
[2017-01-31 13:47] VITALS: BP 126/76
--- NOTE | 2017-01-31 19:38 | DISCHARGE SUMMARY ---
CC: Matt Ronquillo. Rebecca Torres DATE OF ADMISSION: 01/25/2017 DATE OF DISCHARGE: 01/31/2017 Admission Diagnoses: Hyperglycemia [place] Toxicity Bipolar disorder Tobacco Abuse Medical noncompliance Discharge Diagnoses: Hyperglycemia: under control [place] Toxicity: resolved Bipolar disorder: mood stable Tobacco abuse: advise pt cessation of tobacco smoking, pt denies nicoderm Medical noncompliance: Patient is arranged a family caseworker daily visit pt This patient comes here with chief complaint of hyperglycemia, medical noncompliance. In inpatient patient was found to have lithium level of 1.77. [place] was hold until it's level was down to 1, then resume. Pt's mood is stable. patient is alert, oriented plus 3. Pt has the capacity to make his own decision. Pt's vital is stable, glucose is under control. The last glucose test is 99. There is no other issue reported. The patient clearly stated to me he does not have power of family law attorney. Patient makes his own decision. patient clearly report to me he wanted to be discharged to home today. hospital makes arrangements for patient to D/C home with family caseworker daily visit patient's home on the patient's program. Basically this program include family caseworker will be daily visit the patient and the patient will also have counseling with mental health and medical management to the patient. Patient is also advised to see his PCP, Dr. Gutierrez, and check the level of [place] and blood workup, in two weeks. Pt clearly state he will see his PCP and do blood workup, check the level of [place], in two weeks. Allergy: Aspirin Home medications: [place] Carbonate 600 mg PO Bid, Seroquel 400 mg PO QPM, Insulin Aspart 5 units SubQ Tid WM with ACHS, Metformin 1000 mg PO bid, Cogentin 1 mg PO bid, Glucotrol 5 mg PO daily. Activity: as tolerated Diet: carbo-control Spending time: 50 minutes JOB #: [id number] EXT JOB [facility][id number] [facility]
== END 2017-01-31 18:00 | disposition home or self-care (01) | DRG 638 ==
LOC: ED 09:22 → MS 11:49
PROVIDERS: ADMIT Nurse Practitioner; ATTEND Nurse Practitioner Gerontology
DX: E11.65 Type 2 diabetes mellitus with hyperglycemia (principal); E87.1 Hypo-osmolality and hyponatremia; F31.60 Bipolar disorder, current episode mixed, unspecified; T38.3X6A Underdosing of insulin and oral hypoglycemic [antidiabetic] drugs, initial encounter; Z91.138 Patient's unintentional underdosing of medication regimen for other reason; T43.591A Poisoning by other antipsychotics and neuroleptics, accidental (unintentional), initial encounter; R25.1 Tremor, unspecified; E11.649 Type 2 diabetes mellitus with hypoglycemia without coma; E87.5 Hyperkalemia; E86.9 Volume depletion, unspecified; F17.210 Nicotine dependence, cigarettes, uncomplicated; E11.40 Type 2 diabetes mellitus with diabetic neuropathy, unspecified; Z60.2 Problems related to living alone; Z79.4 Long term (current) use of insulin; Z91.81 History of falling
CPT/HCPCS: 36415; 80048; 80053; 80178; 80306; 80307; 80320; 80329; 81001; 81003; 83036; 83690; 84443; 85025; 87070; 87086; 87430; 93005; 93010; 96360; 99283; 99284

== ENCOUNTER 2017-02-15 11:03 | Emergency (ER) | payer MEDICAID ==
[2017-02-15 12:41] LABS: BASOPHILS # (AUTO) 0.1 10^3/uL (0.0-0.1); BASOPHILS % (AUTO) 0.7 %; EOSINOPHILS # (AUTO) 0.2 10^3/uL (0.0-0.7); EOSINOPHILS % (AUTO) 2.1 %; HCT - HEMATOCRIT 40.9 % (42.0-52.0); HGB - HEMOGLOBIN 13.7 g/dL (14.0-18.0); LYMPHOCYTES # (AUTO) 2.1 10^3/uL (1.5-3.5); LYMPHOCYTES % (AUTO) 19.2 %; MEAN CORPUSCULAR HEMOGLOBIN 30.7 pg (27.0-31.0); MEAN CORPUSCULAR HGB CONC 33.5 g/dL (32.0-36.0); MEAN CORPUSCULAR VOLUME 91.7 fL (80.0-94.0); MEAN PLATELET VOLUME 7.2 fL (7.4-11.4); MONOCYTES # (AUTO) 1.1 10^3/uL (0.0-1.0); MONOCYTES % (AUTO) 9.6 %; NEUTROPHILS # (AUTO) 7.6 10^3/uL (1.5-6.6); NEUTROPHILS % (AUTO) 68.4 %; RED BLOOD COUNT 4.46 10^6/uL (4.70-6.10)
[2017-02-15 12:47] LABS: ALBUMIN/GLOBULIN RATIO 1.1 (1.0-2.2); BILIRUBIN,TOTAL 0.6 mg/dL (0.2-1.0); BUN - BLOOD UREA NITROGEN 9 mg/dL (6-20); CALCIUM 9.5 mg/dL (8.5-10.3); CARBON DIOXIDE - CO2 28 mmol/L (21-32); CHLORIDE 102 mmol/L (101-111); CREATININE 0.6 mg/dL (0.6-1.2); GFR - MDRD 138 (>89); GLUCOSE 186 mg/dL (70-100); LIPASE 29 U/L (22-51); POTASSIUM 4.8 mmol/L (3.5-5.0); SALICYLATE < 6.0 mg/dL; SODIUM 136 mmol/L (135-145); TOTAL PROTEIN 7.1 g/dL (6.7-8.2)
[2017-02-15 12:52] LABS: ACETAMINOPHEN < 10 ug/mL (10-30)
--- NOTE | 2017-02-15 13:19 | ED Physician Documentation ---
History of Present Illness - Stated complaint Stated Complaint: MHE - Chief complaint Chief Complaint: MHE - History obtained from History obtained from: Patient, Family - Additonal information Additional information: This patient is a 61-year-old man with a history of bipolar disorder and diabetes. He lives locally and is normally on Seroquel and lithium. He also has a history of noncompliance. He is here seeking evaluation for sleeplessness and agitation. He is accompanied by his brother who knows his history well. He says for the last 4 days he has been up at night and has not been sleeping. He normally gets his medications in blister packs and does have a history of noncompliance and it is unclear whether he has been taking his medications correctly or not. He does have a distant history of lithium overdose at this level will need to be checked here today. The patient here has no physical complaints. He says he wants to take some Seroquel and go home and sleep and he thinks he will feel better later. It is unclear whether he has been taking his medication recently or not the patient has no recollection. He does mention that he has been up for 4-5 days which is his record. He does not want to hurt himself or anyone else. He does have a place to go to. He does normally get his medications in blister packs and he thinks he may be out of the medications and normally he gets his Meals on Wheels delivered to him. He has no complaints of chest pain, shortness of breath, nausea, vomiting, constipation, diarrhea or lower urinary symptoms. Review of systems: For pertinent positive and negative questions for the review of systems please see history of present illness. Otherwise all other systems have been reviewed and are negative. Dragon disclaimer: Parts of this medical record were created using voice recognition technology. Because of the inherent limitations of this system occasional same sounding word substitutions do occur and persist despite proofreading. Please read the document for context. PD PAST MEDICAL HISTORY - Past Medical History Cardiovascular: Hypertension, Arrhythmia Respiratory: None Neuro: Peripheral neuropathy Endocrine/Autoimmune: Type 2 diabetes GI: None : None HEENT: None Psych: Bipolar disorder Derm: None - Past Surgical History General: Appendectomy Ortho: Knee replacement - Present Medications Home Medications: Ambulatory Orders Medication Instructions Recorded Confirmed [place] Carbonate 600 mg PO BID 05/10/16 01/28/17 Metformin HCl 1,000 mg PO BID 05/10/16 01/25/17 glipiZIDE [Glucotrol] 5 mg PO DAILYWM 09/11/16 01/25/17 Benztropine [Cogentin] 1 mg PO BID 01/09/17 01/25/17 Insulin Aspart [Novolog Flexpen] 5 units SQ TIDWM 01/09/17 01/25/17 QUEtiapine [SEROquel] 400 mg PO QPM 01/28/17 01/28/17 - Allergies Allergies/Adverse Reactions: Allergies Allergy/AdvReac Type Severity Reaction Status Date / Time aspirin Allergy Unknown Verified 01/08/17 12:58 - Social History Does the pt smoke?: Yes Smoking Status: Current every day smoker Does the pt drink ETOH?: No Does the pt have substance abuse?: No PD ED PE NORMAL - Vitals Vital signs reviewed: Yes - General General: Alert and oriented X 3, No acute distress, Well developed/nourished - HEENT HEENT: Atraumatic, PERRL, EOMI - Neck Neck: No bony TTP - Cardiac Cardiac: RRR, No murmur, No gallop, No rub - Respiratory Respiratory: No respiratory distress, Clear bilaterally - Abdomen Abdomen: Normal bowel sounds, Soft, Non tender, Non distended - Rectal Rectal: Deferred - Derm Derm: Normal color, Warm and dry - Extremities Extremities: No deformity, No tenderness to palpate - Neuro Neuro: Alert and oriented X 3, No motor deficit, No sensory deficit - Psych Psych: Other (Patient speech is pressured, his mood is elevated.) Results - Vitals Vitals: Vital Signs - 24 hr 02/15/17 11:15 Temperature 37.3 C Heart Rate 92 Respiratory 18 Rate Blood Pressure 177/84 H O2 Saturation 99 Oxygen O2 Source [Without Activity] Room air O2 Source Room air - Labs Labs: Laboratory Tests 02/15/17 02/15/17 02/15/17 11:55 12:26 12:26 WBC 11.0 H RBC 4.46 L Hgb 13.7 L Hct 40.9 L MCV 91.7 MCH 30.7 MCHC 33.5 RDW 13.0 Plt Count 314 MPV 7.2 L Neut # 7.6 H Lymph # 2.1 [place] # 1.1 H Eos # 0.2 Baso # 0.1 Absolute Nucleated RBC 0.00 Nucleated RBCs 0.0 Sodium 136 Potassium 4.8 Chloride 102 Carbon Dioxide 28 Anion Gap 6.0 BUN 9 Creatinine 0.6 Estimated GFR (MDRD) 138 Glucose 186 H Calcium 9.5 Total Bilirubin 0.6 AST 23 ALT 26 Alkaline Phosphatase 66 Total Protein 7.1 Albumin 3.7 Globulin 3.4 Albumin/Globulin Ratio 1.1 Lipase 29 Last Dose Date Last Dose Time Salicylates < 6.0 Urine Opiates Screen NEGATIVE Ur Oxycodone Screen NEGATIVE Urine Methadone Screen NEGATIVE Ur Propoxyphene Screen NEGATIVE Acetaminophen < 10 L Ur Barbiturates Screen NEGATIVE Ur Tricyclics Screen NEGATIVE Ur Phencyclidine Scrn NEGATIVE Ur Amphetamine Screen NEGATIVE U Methamphetamines Scrn NEGATIVE U Benzodiazepines Scrn NEGATIVE [place] Urine Cocaine Screen NEGATIVE U Cannabinoids Screen NEGATIVE Ethyl Alcohol < 5.0 02/15/17 12:26 WBC RBC Hgb Hct MCV MCH MCHC RDW Plt Count MPV Neut # Lymph # [place] # Eos # Baso # Absolute Nucleated RBC Nucleated RBCs Sodium Potassium Chloride Carbon Dioxide Anion Gap BUN Creatinine Estimated GFR (MDRD) Glucose Calcium Total Bilirubin AST ALT Alkaline Phosphatase Total Protein Albumin Globulin Albumin/Globulin Ratio Lipase Last Dose Date Unknown Last Dose Time Unknown Salicylates Urine Opiates Screen Ur Oxycodone Screen Urine Methadone Screen Ur Propoxyphene Screen Acetaminophen Ur Barbiturates Screen Ur Tricyclics Screen Ur Phencyclidine Scrn Ur Amphetamine Screen U Methamphetamines Scrn U Benzodiazepines Scrn [place] 0.98 Urine Cocaine Screen U Cannabinoids Screen Ethyl Alcohol PD MEDICAL DECISION MAKING - ED course ED course: This patient is a 61-year-old male with a history of bipolar on Seroquel and lithium who is brought in for evaluation by his brother who knows him quite well. Apparently this patient is also known To [facility]. This patient has a long history of bipolar disorder and has required fairly close observation to keep his disease process controlled. Today the patient presents in a manic state. 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 He is requesting Seroquel so he can go home and sleep. His brother says that he has been transiently taking his medications and is unsure about compliance. Given the fact that the patient had a lithium overdose in the past and lithium level was checked and found to be appropriate. This patient also has a history of diabetes and sometimes noncompliant with medications however his diabetes appears to be fairly well controlled here. Laboratory screening was done on this patient and there is no evidence of lithium toxicity, diabetes [id number] or any other toxidrome or intoxicant found. He appears to be purely psych at this juncture and we are awaiting a [facility] consult. He was seen by social work and we both feel that we need a consult by them to determine final dispositionAs a know this patient very well. I am inclined to follow their lead on this patient if we can medicate him and get him better and are comfortable with going home the next a possibility or if they feel he needs inpatient admission since a known very well I will agree to this as well. Disposition pending [facility] consultation Clinical impression: 1. Acute no 2. History of bipolar disorder on Seroquel and lithium 3. Insomnia for 4 days suspect noncompliance of Seroquel 4. No evidence of lithium toxicity or diabetes out of control
[2017-02-15] MEDS ORDERED: QUEtiapine 25 MG TABLET PO STA (19:05)
--- NOTE | 2017-02-15 20:44 | ED Physician Documentation ---
ED Addendum - Addendum Addendum: 02/15/17 20:43 Seen and evaluated by the mental health professional who arranged for psychiatric bed at [facility] evaluation and treatment [place] under the care of nurse practitioner Itzel. [place] were completed.
[2017-02-15 23:27] VITALS: BP 166/75
== END 2017-02-15 23:36 | disposition short-term general hospital (02) ==
LOC: ED 11:03
DX: F31.9 Bipolar disorder, unspecified (principal); G47.00 Insomnia, unspecified; F20.9 Schizophrenia, unspecified; I10 Essential (primary) hypertension; E11.42 Type 2 diabetes mellitus with diabetic polyneuropathy; Z79.84 Long term (current) use of oral hypoglycemic drugs; F17.200 Nicotine dependence, unspecified, uncomplicated
CPT/HCPCS: 36415; 80053; 80178; 80306; 80307; 80320; 80329; 83690; 85025; 99284; A9270